=== PATIENT | female | born 1960 | race Caucasian/White ===

== ENCOUNTER 2021-11-27 08:15 | Inpatient (IN) | payer BC, SELFPAY ==
[2021-11-27] VITALS (16 sets, daily range): BP systolic 139–159; BP diastolic 56–80; PULSE 83–97; RESP 11–20; TEMP 36.4–37.1; O2SAT 97–100; BMI 43.8
--- NOTE | ~2021-11-27 | NM_ITS ---
EXAMINATION: NM GI bleeding DATE: 12/02/2021 12:19 INDICATION: Gastrointestinal hemorrhage. TECHNIQUE: 23.6 mCi Tc 99m in vitro labeled red cells was administered intravenously. Scintigraphic images of the abdomen were obtained for one hour. COMPARISON: None. FINDINGS: No pattern of abnormal activity is seen in the abdomen or pelvis to suggest gastrointestina l hemorrhage. IMPRESSION: 1. No evidence of active gastrointestinal hemorrhage. Reviewed, dictated and finalized at location B.
--- NOTE | ~2021-11-27 | CT_ITS ---
EXAMINATION: CT abdomen pelvis w con DATE: 11/27/2021 09:41 INDICATION: Generalized abdominal pain. TECHNIQUE: Computed tomography (CT) of the abdomen and pelvis was performed with 100 mL Omnipaque 350 intravenous contrast. Automated exposure control and iterative reconstruction technique were employe d. The dose-length product was 1584.67 mGy-cm. COMPARISON: CT abdomen and pelvis 06/02/2014 FINDINGS: The visualized portions of the lung bases demonstrate mild atelectasis. No pleural effusion . The heart size is normal. No pericardial effusion. There are coronary artery calcifications. There are surgical changes of the stomach. There is a 13 mm cyst in the liver. The gallbladder is absent. T he spleen and pancreas are normal. There are numerous cysts in the kidneys measuring up to 7.7 cm on the left. There are no dilated loops of bowel. The appendix is normal. There are no pathologically en larged lymph nodes. There is no free intraperitoneal fluid. There is a lipoma in left gluteus medius muscle. There are bilateral total hip arthroplasties. There is lumbar dextrocurvature and severe spon dylosis. IMPRESSION: 1. Polycystic kidney disease. Reviewed, dictated and finalized at location A.
--- NOTE | ~2021-11-27 | US_ITS ---
EXAMINATION: US venous doppler [facility] DATE: 12/03/2021 16:42 INDICATION: Left arm swelling TECHNIQUE: Grayscale ultrasound images without and with compression and Doppler ultrasound images of the left upper extremity veins were obtained. COMPARISON: None. FINDINGS: The level of the elbow there are peripheral and central echogenicities and lack of flow within a nonc ompressible cephalic vein. Downstream portions of the cephalic vein were patent The visualized portio ns of the left internal jugular vein, subclavian vein, axillary vein, brachial veins, basilic vein, r adial vein, and ulnar vein are patent. IMPRESSION: 1. 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 Reviewed, dictated and finalized at location K. IMPRESSION: 1. Sonographic findings consistent with chronic posttraumatic change in the ce phalic vein at the level of the elbow.
--- NOTE | ~2021-11-27 | NM_ITS ---
EXAMINATION: NM GI bleeding DATE: 12/03/2021 14:31 INDICATION: Hematochezia TECHNIQUE: Anterior and left and right lateral scanned scintigrams of the abdomen were obtained prior to radiopharmaceutical injection to assess for residual activity from the study performed one day pr ior. Sufficient activity was present confirming gastrointestinal bleed and was elected to defer with additional radiopharmaceutical injection. FINDINGS: There is activity scattered throughout the colon beginning proximally at the cecum. There i s a small amount of activity in the right lower quadrant situated between the cecum and what is likel y the sigmoid colon likely within the distal small bowel and likely representing the origin of the bl eed. IMPRESSION: 1. Active gastrointestinal bleed with activity throughout the colon beginning at the cecum and also likely within some distal small bowel in the right lower quadrant which likely represents the site of origin. Reviewed, dictated and finalized at location A.
--- NOTE | 2021-11-27 08:38 | ED.GENADULT ---
HPI - General Adult General Chief complaint: Abdominal Pain Stated complaint: abdominal pain Time Seen by Provider: 11/27/21 08:38 Source: patient and RN notes reviewed Mode of arrival: ambulatory Limitations: no limitations History of Present Illness HPI narrative: Patient is 61 years old white female came to the emergency room because of loose stool x1, bloody, started 3 days ago and another similar symptom today. Patient denies any fever, chills, nausea, vomiting. The above symptom associated with mild diffuse abdominal pain. History of gastric bypass 7 years ago at [facility] with complication including perforation, scar tissue formation, stretching the connection between the esophagus and small bowel, feeding tube for 1 month then removed. Also history of ankylosing spondylitis on Celebrex for years. Related Data Home Medications Medication Instructions Recorded Confirmed cefadroxil 11/27/21 celecoxib mg 11/27/21 clotrimazole-betamethasone applic TOPICAL 11/27/21 duloxetine mg PO 11/27/21 folic acid 11/27/21 gabapentin 11/27/21 golimumab [Simponi ARIA] IV 11/27/21 leflunomide mg 11/27/21 oxycodone-acetaminophen 11/27/21 tramadol mg 11/27/21 trazodone 11/27/21 Allergies Allergy/AdvReac Type Severity Reaction Status Date / Time No Known Allergies Allergy Verified 11/27/21 08:38 Review of Systems Review of Systems: CONSTITUTIONAL: Denies fever, chills, or sweats. EYES: Denies visual changes, redness, or discharge. ENT: Denies rhinorrhea, congestion, sore throat, or otalgia. CARDIOVASCULAR: Denies chest pain, palpitations, or edema. RESPIRATORY: Denies cough or dyspnea. GASTROINTESTINAL: Denies abdominal pain, nausea, vomiting, or diarrhea. GENITOURINARY: Denies dysuria or hematuria. SKIN: Denies rash or itching. MUSCULOSKELETAL: Denies back pain, joint pain, or myalgia. NEUROLOGIC: Denies headache, numbness, or weakness. PSYCHIATRIC: Denies anxiety or depression. PMFSH Social History Social History Smoking status: Never smoker Exam Narrative: General appearance: Well-developed, well-nourished Skin: Normal color Head: Normocephalic, nontraumatic Eyes: Clear conjunctiva ENT: Oropharynx normal, ears normal, nose normal Neck: Supple, nontender Chest and respiratory: Airway patent, no respiratory distress, no accessory muscle use Heart: Regular rate/rhythm Abdomen: Soft, mild diffuse abdominal tenderness, quiet bowel sounds, rectal exam, maroon color of the stool, guaiac positive Vascular: Normal peripheral pulses, normal capillary refill. Musculoskeletal: Normal range of motion, nontender back Neurologic: Alert and oriented ?3, CHUCK [place]AG[place] COOK is normal as tested, no gross motor deficit Course Course Emergency Course: Stable Consultations Consultation #1: Dr. Caal, accepted patient admission Date: 11/27/21 Time: 10:44 Vital Signs Vital signs: Vital Signs Temperature 36.9 C 11/27/21 08:24 Pulse Rate 97 11/27/21 08:24 Respiratory Rate 16 11/27/21 08:24 Blood Pressure 158/70 H 11/27/21 08:24 Pulse Oximetry 100 11/27/21 08:24 Temperature 36.9 C 11/27/21 08:24 Pulse Rate 97 11/27/21 08:24 Respiratory Rate 16 11/27/21 08:24 Blood Pressure 158/70 H 11/27/21 08:24 Pulse Oximetry 100 11/27/21 08:24 Medical Decision Making MDM Narrative Medical decision making narrative: GI bleed, gastritis, peptic ulcer disease are my concern. High likely secondary to chronic intake of Celebrex Differential Diagnosis Differential Diagnosis: Gastritis, peptic ulcer disease, GI bleed, anemia Vital Signs Vital Signs: Vital Sign
[2021-11-27] MEDS: SODIUM CHLORIDE 0.9% IV 1,000 ML 999 ML IV CONT (08:52)
[2021-11-27 09:10] LABS: Alanine Aminotransferase 13 U/L (4-35); Albumin Level 3.1 g/dL (3.5-5.1); Alkaline Phosphatase 59 U/L (38-126); Anion Gap 6 mmol/L (8-16); Aspartate Amino Transferase 21 U/L (14-36); Bilirubin,Total 0.2 mg/dL (0.2-1.3); Blood Urea Nitrogen 39 mg/dL (7-17); Calcium 8.2 mg/dL (8.4-10.2); Carbon Dioxide 23 mmol/L (22-30); Chloride 111 mmol/L (98-107); Estimated CRCL calculation 85 ml/min; Estimated Glomerular Filt Rate > 60; Glucose 114 mg/dL (65-110); Lipase 34 U/L (23-300); Potassium 3.9 mmol/L (3.4-5.0); Sodium 140 mmol/L (137-145)
[2021-11-27 09:11] LABS: Basophils Percent Auto 0.4 % (0.2-1.2); Eosinophils Absolute Auto 0.1 K/mm3 (0-0.3); Eosinophils Percent Auto 1.8 % (0-4.4); Immature Granulocyte Absolute 0.01 K/mm3 (0.00-0.031); Immature Granulocyte Percent A 0.2 % (0-0.5); Lymphocytes Absolute Auto 0.91 K/mm3 (0.9-3.2); Lymphocytes Percent Auto 17.7 % (18.3-44.2); Mean Corpuscular HGB Conc 28.8 g/dl (32-36); Mean Corpuscular Hemoglobin 25.2 pg (26-34); Mean Corpuscular Volume 87.6 fl (80-100); Mean Platelet Volume 10.1 fl (7.4-10.4); Monocytes Absolute Auto 0.5 K/mm3 (0.1-0.6); Monocytes Percent Auto 9.5 % (2.6-8.5); Neutrophils Absolute Auto 3.6 K/mm3 (1.3-6.7); Neutrophils Percent Auto 70.4 % (45.5-73.1); Platelet Count Result 253 k/mm3 (150-375); Red Blood Count 2.34 M/mm3 (4.2-5.4); Red Cell Distribution Width 19.4 % (11.5-14.5); White Blood Count 5.1 K/mm3 (4.5-10.0)
--- NOTE | 2021-11-27 09:19 | PC.NURSE ---
pt unable to urinate at this time. declining straight cath.
[2021-11-27 09:33] LABS: Hematocrit 20.5 % (37.0-47.0); Hemoglobin 5.9 g/dL (12.0-15.0)
[2021-11-27 09:39] LABS: Anisocytosis 1+ (NORMAL); Platelet Estimate Adequate (Adequate)
[2021-11-27 10:29] LABS: Appearance Urine Clear (Clear); Bilirubin Urine Negative (Negative); Blood Urine 2+ (Negative); Glucose Urine UA Negative (Negative); Ketones Urine Trace mg/dL (Negative); Leukocyte Esterase Ur Negative LEU/UL (Negative); Nitrate Urine Negative (Negative); Protein Urine Negative (Negative); Specific Grav Ur 1.015 (1.001-1.035); Urobilinogen Urine 0.2 mg/dL (<2.0); pH Urine 6.5 (5.0-9.0)
[2021-11-27 10:30] LABS: Add Urine Microscopic? YES; Color Urine Light Yellow (Yellow)
[2021-11-27 10:34] LABS: Bacteria Urine Trace /hpf; RBC Urine 0-2 /hpf (0-2); WBC Urine 0-3 /hpf
[2021-11-27 11:00] LABS: Hematocrit 19.4 % (37.0-47.0); Hemoglobin 5.5 g/dL (12.0-15.0)
[2021-11-27] MEDS: PANTOPRAZOLE SODIUM IV 40 MG VIAL IV PUSH ×2 (11:06→21:48)
[2021-11-27] MEDS: SODIUM CHLORIDE 0.9% IV 250 ML 30 ML IV CONT (11:42)
[2021-11-27] MEDS: TUBING, BLOOD PLUM PUMP TUBING 1 EACH XX (12:14)
--- NOTE | 2021-11-27 13:17 | ADMGEN ---
This patient, Flory Suggs, was admitted to 2 Medical Room 246-. Patient/family oriented to hospital policies and general routines including ID bracelet, bed and alarms, visiting hours, pain management, procedures, bathroom and other care routines, personal items, smoking policy, room service/diet, and visiting hours. Information on how to activate the Rapid Response Team has been discussed. Patient/Family are encouraged to report perceived risks to care and to ask questions if they do not understand what they are told or what they should do.
--- NOTE | 2021-11-27 15:25 | PM.IMHP ---
H&P: HPI History of Present Illness Date/Time: 11/27/21 15:25 this is a 61-year-old female that presented to our emergency department with complaints fatigue and bloody stools. Patient has a past medical history of gastric bypass. According to patient for approximately 3 days she felt weak and fatigued. She notes that this morning she had a loose bowel movement and noticed blood in her stool. Patient describes the blood as dark purplish in color. Patient also notes of nausea vomiting which is not new to her. According to patient her gastric bypass occasionally cause her to have nausea vomiting if she does not chew her food correctly. Patient denies any hematemesis, notes that her nausea vomiting has resolved, and she has not noticed any hematochezia since her admission, she also denies any shortness of breath, chest pain palpitation, or dizziness. She continues to have abdominal pain to her lower abdominal area and left upper abdominal area. Chief Complaint: Bloody stool, fatigue and weakness Review of Systems Review of Systems: All systems reviewed & are unremarkable except as noted in HPI and below PMFSH Family History Family History (Updated 11/27/21 @ 13:26 by Urmila Kuo RN) Father Acute myocardial infarction Mother Hypertension Mother Cerebrovascular accident Social History Social History Smoking packs per day: 0.5 Smoking cigarettes per day: 10.0 Years smoked: 20 Smoking pack-years: 10.00 Smoking status: Former smoker Tobacco type: cigarettes Alcohol intake: never Substance use: never Substance use type: does not use Spiritual care concerns: No Meds Home Medications and Allergies Home Medications Medication Instructions Recorded Confirmed Type cefadroxil 11/27/21 History celecoxib 200 mg PO BID 11/27/21 11/27/21 History clotrimazole-betamethasone applic TOPICAL 11/27/21 History duloxetine 60 mg PO DAILY 11/27/21 11/27/21 History folic acid 1 mg PO DAILY 11/27/21 11/27/21 History gabapentin 900 mg PO HS 11/27/21 11/27/21 History golimumab [Simponi ARIA] IV 11/27/21 History leflunomide 10 mg PO DAILY 11/27/21 11/27/21 History methotrexate sodium 12.5 mg PO WEEKLY 11/27/21 11/27/21 History oxycodone-acetaminophen 11/27/21 History tramadol 50 mg PO TID 11/27/21 11/27/21 History trazodone 50 mg PO HS PRN 11/27/21 11/27/21 History Allergies Allergy/AdvReac Type Severity Reaction Status Date / Time No Known Allergies Allergy Verified 11/27/21 08:38 Vital Signs Vital Signs - 24 hr 11/27/21 08:24 11/27/21 10:56 11/27/21 11:45 Temperature 98.5 F 97.7 F Pulse Rate 97 93 95 Respiratory Rate 16 20 18 Blood Pressure 158/70 H 158/80 H 155/79 H Pulse Oximetry 100 97 100 11/27/21 12:00 11/27/21 12:35 11/27/21 13:15 Temperature 98.1 F 98.3 F Pulse Rate 93 91 95 Respiratory Rate 12 11 L 16 Blood Pressure 159/76 H 156/75 H 152/74 H Pulse Oximetry 97 99 100 11/27/21 13:45 11/27/21 14:15 11/27/21 15:05 Temperature 98.4 F 98.6 F 98.4 F Pulse Rate 94 88 91 Respiratory Rate 17 18 16 Blood Pressure 140/64 139/62 145/63 H Pulse Oximetry 99 99 100 11/27/21 15:20 Temperature 98.6 F Pulse Rate 93 Respiratory Rate 18 Blood Pressure 140/58 L Pulse Oximetry 98 Exam Narrative: General: Pleasant, no obvious distress noted HEENT: PERRLA, Mucous Membranes Moist and [place], Nares Patent, Sclera Clear Neck: JVD, Supple Pulmonary: Clear to Auscultation, Normal Air Movement Cardiovascular: No Murmurs, Gallops, or Rubs, Regular Rhythm, Regular Rate Abdominal: Abdomen Soft, Non-Distended, Normal Bowel Sounds tenderness to the lower abdominal area and left upper quad Extremities: Normal Pulses Integumentary: No Abnormalities Neurological: Normal Gait, Normal Speech Psychological: Mental Status NL, Mood NL H&P: Results Labs Labs: Short CBC 11/27/21 11/27/21 Range/Units 08:53 10:43 W
[2021-11-27] MEDS: SODIUM CHLORIDE 0.9% IV 1,000 ML 125 ML IV CONT (17:33)
[2021-11-27] MEDS: HYDROcodone/acetaminophen (*CRX) 5-325 MG TABLET 1 TAB PO (17:54)
[2021-11-27 19:16] LABS: Hematocrit 23.7 % (37.0-47.0)
[2021-11-27 19:32] LABS: Transferrin 253 mg/dL (206-381)
[2021-11-27 19:41] LABS: Iron 30 ug/dL (37-170)
[2021-11-27 19:51] LABS: Percent Iron Saturation 9 % (20-50)
[2021-11-27 20:13] LABS: Thyroid Stimulating Hormone Reflex 0.364 uIU/mL (0.465-4.68)
[2021-11-27 20:43] LABS: Folic Acid > 20.0 ng/mL (2.76->20)
[2021-11-27 21:17] LABS: Hematocrit 22.1 % (37.0-47.0)
[2021-11-27 21:35] LABS: Hemoglobin 6.6 g/dL (12.0-15.0)
[2021-11-28] VITALS (12 sets, daily range): BP systolic 138–171; BP diastolic 67–93; PULSE 81–91; RESP 16–20; TEMP 36.4–36.7; O2SAT 97–100
[2021-11-28 03:51] LABS: Free T4 Free Thyroxine Reflex 1.31 ng/dL (0.78-2.19)
[2021-11-28] MEDS: MORPHINE SULFATE (*CRX) 2 MG/ML INJ IV PUSH ×2 (05:45→13:27)
[2021-11-28 06:15] LABS: Basophils Percent Auto 0.7 % (0.2-1.2); Eosinophils Percent Auto 0.9 % (0-4.4); Hematocrit 28.6 % (37.0-47.0); Hemoglobin 8.8 g/dL (12.0-15.0); Immature Granulocyte Absolute 0.01 K/mm3 (0.00-0.031); Immature Granulocyte Percent A 0.2 % (0-0.5); Lymphocytes Absolute Auto 0.86 K/mm3 (0.9-3.2); Lymphocytes Percent Auto 19.7 % (18.3-44.2); Mean Corpuscular HGB Conc 30.8 g/dl (32-36); Mean Corpuscular Hemoglobin 27.4 pg (26-34); Mean Corpuscular Volume 89.1 fl (80-100); Mean Platelet Volume 9.6 fl (7.4-10.4); Monocytes Absolute Auto 0.6 K/mm3 (0.1-0.6); Monocytes Percent Auto 13.7 % (2.6-8.5); Neutrophils Absolute Auto 2.8 K/mm3 (1.3-6.7); Neutrophils Percent Auto 64.8 % (45.5-73.1); Platelet Count Result 208 k/mm3 (150-375); Red Blood Count 3.21 M/mm3 (4.2-5.4); Red Cell Distribution Width 17.7 % (11.5-14.5); White Blood Count 4.4 K/mm3 (4.5-10.0)
[2021-11-28 06:24] LABS: Alanine Aminotransferase 12 U/L (4-35); Albumin Level 3.1 g/dL (3.5-5.1); Alkaline Phosphatase 60 U/L (38-126); Anion Gap 4 mmol/L (8-16); Aspartate Amino Transferase 22 U/L (14-36); Blood Urea Nitrogen 29 mg/dL (7-17); Calcium 8.2 mg/dL (8.4-10.2); Carbon Dioxide 22 mmol/L (22-30); Chloride 115 mmol/L (98-107); Estimated CRCL calculation 97 ml/min; Estimated Glomerular Filt Rate > 60; Glucose 105 mg/dL (65-110); Magnesium 2.1 mg/dL (1.6-2.3); Potassium 3.5 mmol/L (3.4-5.0); Sodium 141 mmol/L (137-145)
[2021-11-28] MEDS: SODIUM CHLORIDE 0.9% IV 1,000 ML 125 ML IV CONT ×2 (08:31→16:02)
[2021-11-28] MEDS: PANTOPRAZOLE SODIUM IV 40 MG VIAL IV PUSH ×2 (08:32→20:56)
--- NOTE | 2021-11-28 10:52 | PM.IMPN ---
Progress Note: A&P Assessment and Plan (1) Acute GI bleeding: Code(s): K92.2 - Gastrointestinal hemorrhage, unspecified Status: Acute Assessment and Plan: Presented with bloody stools for 4 days with associated epigastric pain Patient does take Celebrex daily. History and symptoms concerning for gastric ulcer Appreciate gastroenterology consultation Patient is NPO at this time while awaiting GI recommendations Continue Protonix b.i.d. Celebrex discontinued (2) Anemia: Qualifiers: Anemia type: unspecified type Qualified Code(s): D64.9 - Anemia, unspecified Code(s): D64.9 - Anemia, unspecified Status: Acute Assessment and Plan: Found to be markedly anemic on presentation with hemoglobin down to 5.5 Secondary to GI bleed as above. Her baseline is unknown. Will attempt to obtain records from her PCP to determine baseline She has been transfused total of 4 units PRBC Hemoglobin has stabilized following transfusion to 8.8 this morning Monitor H&H q.6 hours (3) BAMBI (obstructive sleep apnea): Code(s): G47.33 - Obstructive sleep apnea (adult) (pediatric) Status: Acute Assessment and Plan: Continue with BiPAP (4) Ankylosing spondylitis: Code(s): M45.9 - Ankylosing spondylitis of unspecified sites in spine Status: Acute Assessment and Plan: Established with camp housekeeper, Dr. Graham at [facility] Receives golimumab infusions every 2 weeks and takes methotrexate weekly Leflunomide 10 mg p.o. daily on hold while NPO. Resume when clinically appropriate Supportive care. Analgesics available as needed (5) Abnormal TSH: Code(s): R79.89 - Other specified abnormal findings of blood chemistry Status: Acute Assessment and Plan: TSH is slightly decreased but T4 and T3 are normal Will need repeat TSH with reflex in 4-6 weeks (6) Bariatric surgery status: Code(s): Z98.84 - Bariatric surgery status Status: Acute Assessment and Plan: Patient is s/p Leo-en-Y gastric bypass in 2014 Subjective Date/time seen: 11/28/21 10:52 Interval history: Date of service: 11/28/2021 Flory Suggs is a 61-year-old female with a history ankylosing spondylitis on immunosuppressive therapy, Leo-en-Y bypass in 2014 complicated by perforation, BAMBI on BiPAP who is seen in follow-up for GI bleeding. Four days ago she developed bloody stools that she describes as maroon in color with associated weakness. She then had difficulty tolerating any food or liquids. She described a significant sharp/cramping pain any time she would try to eat or drink anything. This pain is mostly concentrated epigastric region. She does endorse taking Celebrex daily. She denies aspirin, blood thinners, or any other NSAID use. She estimates that she is the head 3 episodes of bloody stool in the past 24 hours. She also endorses a headache. She denies dizziness but does endorse feeling somewhat lightheaded. Also endorses dyspnea with exertion. Last night about 3:00 a.m. she had an onset of sharp mid back pain that resolved with tramadol. She denies chest pain or palpitations. Denies nausea or vomiting. No hematemesis. No hematuria or dysuria. Review of Systems Review of Systems: All systems reviewed & are unremarkable except as noted in HPI and below Exam Narrative: General: Well-nourished, well-appearing 61 year-old female, sitting up in bed, comfortable, NARD Neuro: awake, alert and oriented x4, speech clear, no focal neuro deficits noted HEENMT: normocephalic, atraumatic, EOMI, sclerae anicteric Respiratory: clear to auscultation bilaterally, nonlabored breathing Cardio: regular rate, regular rhythm with S1-S2 Abdomen: nondistended, normoactive bowel sounds, soft, nontender to palpation Extremities: no edema, erythema, or tenderness to palpation, DP pulses 2+ bilaterally Skin: no rashes or lesions, warm and dry P
[2021-11-28 11:54] LABS: Hematocrit 28.4 % (37.0-47.0); Hemoglobin 8.7 g/dL (12.0-15.0)
--- NOTE | 2021-11-28 12:26 | WPDGICN ---
Assessment and Plan Assessment and plan (1) Acute blood loss anemia: Code(s): D62 - Acute posthemorrhagic anemia Status: Acute Assessment and Plan: will proceed with egd and colonoscopy to check source of anemia she already received blood transfusion, keep hb>7 could be peptic ulcer disease given previous gastric surgery, also colitis or diverticular bleeding however CT scan was negative (2) Rectal bleeding: Code(s): K62.5 - Hemorrhage of anus and rectum Status: Acute Assessment and Plan: scopes tomorrow (3) Acute LUQ pain: Code(s): R10.12 - Left upper quadrant pain Status: Acute (4) Ankylosing spondylitis: Code(s): M45.9 - Ankylosing spondylitis of unspecified sites in spine Status: Acute Assessment and Plan: on meds at home, he is immunocompromised (5) BAMBI (obstructive sleep apnea): Code(s): G47.33 - Obstructive sleep apnea (adult) (pediatric) Status: Acute (6) History of Leo-en-Y gastric bypass: Code(s): Z98.84 - Bariatric surgery status Status: Inactive GI Consult Note Consult date/time: 11/28/21 12:26 Reason for consult: rectal bleeding, acute anemia HPI: Flory Suggs is a 61 year old female with history of on MTX, leflunomide, history of gastric bypass 6-7 years ago as bariatric surgery. Her last EGD and colonoscopy 6-7 years ago. She also has chronic back pain on tramadol and celebrex, denies blood thinners. On had one episode of rectal bleeding that subsided but came back day of admission, also had moderate pain in LUQ site worse after eating hence she has not been eating since admission. She has maroon stool, denies melena. Blood work revealed acute anemia with hb 5.9 that required blood transfusion, bun [address] scan a/p reviewed, showed surgical changes of stomach, cholecystectomy and polycystic kidney disease. Review of Systems Constitutional: Constitutional: Reports fatigue Eyes: Eyes: Denies blurry vision ENT: Reports Normal hearing present Cardiovascular: Cardiovascular: Denies chest pain Respiratory: Respiratory: Denies cough Gastrointestinal: Gastrointestinal: Reports abdominal pain and Reports hematochezia Genitourinary: Genitourinary: Denies hematuria Musculoskeletal: Musculoskeletal: Reports back pain Integumentary/Breasts: Skin/Breast: Denies dry skin Neurologic: Denies headache(s) Psychiatric: Psychiatric: Reports behavioral changes [facility] Past Medical History Medical History (Updated 11/28/21 @ 12:32 by Faraz Guthrie MD) Acute blood loss anemia Acute LUQ pain Ankylosing spondylitis BAMBI (obstructive sleep apnea) Rectal bleeding Surgical History Surgical History (Updated 11/28/21 @ 12:32 by Faraz Guthrie MD) History of Leo-en-Y gastric bypass Family History Family History (Updated 11/27/21 @ 13:26 by Urmila Kuo RN) Father Acute myocardial infarction Mother Hypertension Mother Cerebrovascular accident Social History Social History Smoking packs per day: 0.5 Smoking cigarettes per day: 10.0 Years smoked: 20 Smoking pack-years: 10.00 Smoking status: Former smoker Tobacco type: cigarettes Alcohol intake: never Substance use: never Substance use type: does not use Spiritual care concerns: No Meds Home Medications and Allergies Home Medications Medication Instructions Recorded Confirmed Type celecoxib 200 mg PO BID 11/27/21 11/27/21 History duloxetine 60 mg PO DAILY 11/27/21 11/27/21 History folic acid 1 mg PO DAILY 11/27/21 11/27/21 History gabapentin 900 mg PO HS 11/27/21 11/27/21 History leflunomide 10 mg PO DAILY 11/27/21 11/27/21 History methotrexate sodium 12.5 mg PO WEEKLY 11/27/21 11/27/21 History tramadol 50 mg PO TID 11/27/21 11/27/21 History trazodone 50 mg PO HS PRN 11/27/21 11/27/21 History Allergies
--- NOTE | 2021-11-28 12:29 | PCCCNOTE ---
On 11/28/21, the student, [Carley Velasco], provided care and [facility] I have reviewed the student's documentation and agree with the findings.
[2021-11-28 13:45] LABS: IFOB Positive Control Positive; Immunochemical Fecal Occult Bl Positive (N)
[2021-11-28] MEDS: BISACODYL 5 MG TABLET EC 20 MG PO (16:02)
[2021-11-28] MEDS: PEG (High)/E-LYTE SOLN 4,000 ML BTL 4000 ML PO (16:03)
[2021-11-28 18:47] LABS: Hematocrit 29.6 % (37.0-47.0); Hemoglobin 9.5 g/dL (12.0-15.0)
[2021-11-28] MEDS: HYDROcodone/acetaminophen (*CRX) 5-325 MG TABLET 1 TAB PO (21:00)
[2021-11-29] VITALS (11 sets, daily range): BP systolic 109–162; BP diastolic 60–97; PULSE 81–100; RESP 14–24; TEMP 35.7–36.8; O2SAT 96–100
[2021-11-29] MEDS: ONDANSETRON INJ 4 MG/2 ML VIAL IV PUSH (00:18)
[2021-11-29] MEDS: SODIUM CHLORIDE 0.9% IV 1,000 ML 125 ML IV CONT (00:20)
[2021-11-29 00:48] LABS: Hematocrit 28.7 % (37.0-47.0); Hemoglobin 8.7 g/dL (12.0-15.0)
[2021-11-29] MEDS: MAGNESIUM CITRATE 300 ML BTL PO (02:51)
[2021-11-29] MEDS: HYDROcodone/acetaminophen (*CRX) 5-325 MG TABLET 1 TAB PO (02:51)
[2021-11-29 06:10] LABS: Anion Gap 5 mmol/L (8-16); Blood Urea Nitrogen 18 mg/dL (7-17); Carbon Dioxide 21 mmol/L (22-30); Chloride 115 mmol/L (98-107); Estimated CRCL calculation 97 ml/min; Estimated Glomerular Filt Rate > 60; Glucose 109 mg/dL (65-110); Potassium 3.6 mmol/L (3.4-5.0); Sodium 141 mmol/L (137-145)
[2021-11-29 06:26] LABS: Hematocrit 28.4 % (37.0-47.0); Hemoglobin 8.6 g/dL (12.0-15.0); Mean Corpuscular HGB Conc 30.3 g/dl (32-36); Mean Corpuscular Hemoglobin 27.2 pg (26-34); Mean Corpuscular Volume 89.9 fl (80-100); Mean Platelet Volume 10.1 fl (7.4-10.4); Platelet Count Result 252 k/mm3 (150-375); Red Blood Count 3.16 M/mm3 (4.2-5.4); Red Cell Distribution Width 18.1 % (11.5-14.5); White Blood Count 5.4 K/mm3 (4.5-10.0)
[2021-11-29] MEDS: PANTOPRAZOLE SODIUM IV 40 MG VIAL IV PUSH (08:01)
--- NOTE | 2021-11-29 09:34 | PC.NURSE ---
Pt to GI lab pe wheelchair 11/29/21 [id number]
[2021-11-29] MEDS: LACTATED RINGERS 1,000 ML 150 ML IV CONT (09:45)
--- NOTE | 2021-11-29 10:01 | WPDANESEPPF ---
Anes - Initial Pre Proc Eval Procedure: Operation Date: 11/29/21 12:15 Proposed Procedures p Esophagogastroduodenoscopy & Colonoscopy - Faraz Guthrie MD Date/Time: 11/29/21 10:01 Surgeon: Maddy Mccartney PA-C Pre Op Diagnosis: GI bleed/anemia Patient Data Age: 61 Gender: F Height: 1.75 m Weight: 134.7 kg Last Vital Signs Temp 36.3 C L 11/29/21 09:35 Pulse 87 11/29/21 09:35 Resp 18 11/29/21 09:35 BP 155/86 H 11/29/21 09:35 Pulse Ox 100 11/29/21 09:35 Allergies Allergy/AdvReac Type Severity Reaction Status Date / Time No Known Allergies Allergy Verified 11/29/21 09:45 Home Medications Medication Instructions Recorded Confirmed Type celecoxib 200 mg PO BID 11/27/21 11/27/21 History duloxetine 60 mg PO DAILY 11/27/21 11/27/21 History folic acid 1 mg PO DAILY 11/27/21 11/27/21 History gabapentin 900 mg PO HS 11/27/21 11/27/21 History leflunomide 10 mg PO DAILY 11/27/21 11/27/21 History methotrexate sodium 12.5 mg PO WEEKLY 11/27/21 11/27/21 History tramadol 50 mg PO TID 11/27/21 11/27/21 History trazodone 50 mg PO HS PRN 11/27/21 11/27/21 History Laboratory Tests 11/28/21 11/28/21 11/28/21 11:37 13:13 18:38 WBC RBC Hgb 8.7 g/dL L g/dL 9.5 g/dL L g/dL (12.0-15.0) (12.0-15.0) Hct 28.4 % L % 29.6 % L % (37.0-47.0) (37.0-47.0) MCV MCH MCHC RDW Plt Count MPV Sodium Potassium Chloride Carbon Dioxide Anion Gap BUN Creatinine Estim Creat Clear Calc Estimated GFR Glucose Calcium Stl Occult Blood (IFOB) Positive H (N) 11/29/21 11/29/21 11/29/21 00:21 05:52 05:52 WBC 5.4 K/mm3 K/mm3 (4.5-10.0) RBC 3.16 M/mm3 L M/mm3 (4.2-5.4) Hgb 8.7 g/dL L g/dL 8.6 g/dL L g/dL (12.0-15.0) (12.0-15.0) Hct 28.7 % L % 28.4 % L % (37.0-47.0) (37.0-47.0) MCV 89.9 fl fl (80-100) MCH 27.2 pg pg (26-34) MCHC 30.3 g/dl L g/dl (32-36) RDW 18.1 % H % (11.5-14.5) Plt Count 252 k/mm3 k/mm3 (150-375) MPV 10.1 fl fl (7.4-10.4) Sodium 141 mmol/L mmol/L (137-145) Potassium 3.6 mmol/L mmol/L (3.4-5.0) Chloride 115 mmol/L H mmol/L (98-107) Carbon Dioxide 21 mmol/L L mmol/L (22-30) Anion Gap 5 mmol/L L mmol/L (8-16) BUN 18 mg/dL H D mg/dL (7-17) Creatinine 0.80 mg/dL mg/dL (0.7-1.0) Estim Creat Clear Calc 97 ml/min ml/min Estimated GFR > 60 (59 - ) Glucose 109 mg/dL mg/dL (65-110) Calcium 8.0 mg/dL L mg/dL (8.4-10.2) Stl Occult Blood (IFOB) Patient hx anesthesia problems: none Family hx anesthesia problems: none Results Review: All pre-operative results and documents have been reviewed as part of the pre-operative evaluation. [facility] Past Medical History Medical History (Updated 11/28/21 @ 12:32 by Faraz Guthrie MD) Acute blood loss anemia Acute LUQ pain Ankylosing spondylitis BAMBI (obstructive sleep apnea) Rectal bleeding Surgical History Surgical History (Updated 11/28/21 @ 12:32 by Faraz Guthrie MD) History of Leo-en-Y gastric bypass Family History Family History (Updated 11/27/21 @ 13:26 by Urmila Kuo RN) Father Acute myocardial infarction Mother Hypertension Mother Cerebrovascular accident Social History Social History Smoking packs per day: 0.5 Smoking cigarettes per day: 10.0 Years smoked: 20 Smoking pack-years: 10.00 Smoking status: Former smoker Tobacco type: cigarettes Alcohol intake: never Substance use: never Substance use type: does
--- NOTE | 2021-11-29 10:01 | PM.IMPN ---
Progress Note: A&P Assessment and Plan (1) Acute GI bleeding: Code(s): K92.2 - Gastrointestinal hemorrhage, unspecified Status: Acute Assessment and Plan: Presented with bloody stools for 4 days with associated epigastric pain Patient does take Celebrex daily. History and symptoms concerning for peptic ulcer Appreciate gastroenterology consultation EGD and colonoscopy this afternoon Continue Protonix b.i.d. Celebrex discontinued (2) Anemia: Qualifiers: Anemia type: unspecified type Qualified Code(s): D64.9 - Anemia, unspecified Code(s): D64.9 - Anemia, unspecified Status: Acute Assessment and Plan: Found to be markedly anemic on presentation with hemoglobin down to 5.5 Secondary to GI bleed as above. Her baseline is unknown. Will attempt to obtain records from her PCP to determine baseline She has been transfused total of 4 units PRBC Hemoglobin has stabilized following transfusion. Hgb 8.6 this morning Monitor H&H q.6 hours (3) BAMBI (obstructive sleep apnea): Code(s): G47.33 - Obstructive sleep apnea (adult) (pediatric) Status: Acute Assessment and Plan: Continue with BiPAP (4) Ankylosing spondylitis: Code(s): M45.9 - Ankylosing spondylitis of unspecified sites in spine Status: Acute Assessment and Plan: Established with public housing interviewer, Dr. Graham at [facility] Receives golimumab infusions every 2 weeks and takes methotrexate weekly Leflunomide 10 mg p.o. daily on hold while NPO. Resume when clinically appropriate Supportive care. Analgesics available as needed (5) Abnormal TSH: Code(s): R79.89 - Other specified abnormal findings of blood chemistry Status: Acute Assessment and Plan: TSH is slightly decreased but T4 and T3 are normal Will need repeat TSH with reflex in 4-6 weeks (6) Bariatric surgery status: Code(s): Z98.84 - Bariatric surgery status Status: Acute Assessment and Plan: Patient is s/p Leo-en-Y gastric bypass in 2014 (7) Epistaxis: Code(s): R04.0 - Epistaxis Status: Acute Assessment and Plan: Nosebleed last night Self-limited, resolved Continue to monitor H&H Subjective Date/time seen: 11/29/21 10:01 Interval history: Date of service: 11/29/2021 Flory Suggs is a 61-year-old female with a history ankylosing spondylitis on immunosuppressive therapy, Leo-en-Y bypass in 2015 complicated by perforation, BAMBI on BiPAP who is seen in follow-up for GI bleeding. She is feeling poorly today, ?like I got hit by a truck?. She feels weaker than yesterday. She states she did not sleep well last night. She had a nose bleed. She cannot recall how long this lasted but states she had to use a couple towels. She states she has nose bleeds ?every so often.? She had a hard time taking the prep for colonoscopy last night as drinking liquids major feel nauseous. She has still been having maroon stools. She endorses 6-7/10 epigastric pain. States last night her epigastric pain got to 10/10. She has chronic back pain that is unchanged. She denies shortness breath, chest pain, palpitations, dizziness, lightheadedness. Review of Systems Review of Systems: All systems reviewed & are unremarkable except as noted in HPI and below Exam Narrative: General: Well-nourished, well-appearing 61 year-old female, sitting up in bed, comfortable, NARD Neuro: awake, alert and oriented x4, speech clear, no focal neuro deficits noted HEENMT: normocephalic, atraumatic, EOMI, sclerae anicteric Respiratory: clear to auscultation bilaterally, nonlabored breathing Cardio: regular rate, regular rhythm with S1-S2 Abdomen: nondistended, normoactive bowel sounds, soft, tender to palpation in epigastric region Extremities: no edema, erythema, or tenderness to palpation, DP pulses 2+ bilaterally Skin: no rashes or lesions, warm and dry Psych: appropria
[2021-11-29 12:25] LABS: Hematocrit 23.3 % (37.0-47.0); Hemoglobin 7.3 g/dL (12.0-15.0)
[2021-11-29] MEDS: traMADol HCL (*CRX) 25 MG TABLET PO (16:33)
[2021-11-29] MEDS: DULoxetine HCL 60 MG CAPSULE.DR PO (17:40)
[2021-11-29 18:36] LABS: Hematocrit 25.3 % (37.0-47.0); Hemoglobin 7.6 g/dL (12.0-15.0)
[2021-11-29] MEDS: MORPHINE SULFATE (*CRX) 2 MG/ML INJ IV PUSH (20:07)
[2021-11-29] MEDS: GABAPENTIN 300 MG CAPSULE 900 MG PO (20:07)
[2021-11-30] VITALS (18 sets, daily range): BP systolic 113–162; BP diastolic 43–72; PULSE 69–94; RESP 16–20; TEMP 35.7–36.9; O2SAT 98–100
[2021-11-30 00:33] LABS: Hematocrit 23.3 % (37.0-47.0)
[2021-11-30 00:56] LABS: Hemoglobin 6.9 g/dL (12.0-15.0)
[2021-11-30] MEDS: SODIUM CHLORIDE 0.9% IV 250 ML 30 ML IV CONT (02:26)
[2021-11-30 06:01] LABS: Anion Gap 1 mmol/L (8-16); Blood Urea Nitrogen 16 mg/dL (7-17); Calcium 7.7 mg/dL (8.4-10.2); Carbon Dioxide 25 mmol/L (22-30); Chloride 114 mmol/L (98-107); Estimated CRCL calculation 97 ml/min; Estimated Glomerular Filt Rate > 60; Glucose 94 mg/dL (65-110); Potassium 3.4 mmol/L (3.4-5.0); Sodium 140 mmol/L (137-145)
--- NOTE | 2021-11-30 07:49 | WPDANESPN ---
Anes - Prog Note Post-Op Date/Time: 11/30/21 07:49 Cardiovascular status: normal Respiratory status: normal Airway patency: baseline Mental status: baseline Post-Op hydration status: normal Vital Signs: Last Vital Signs Temp 36.6 C 11/30/21 06:43 Pulse 80 11/30/21 06:43 Resp 18 11/30/21 06:43 BP 123/43 L 11/30/21 06:43 Pulse Ox 100 11/30/21 06:43 Pain Score (VAS): 0 I/O: Intake & Output 11/29/21 11/29/21 11/30/21 15:59 23:59 07:59 Intake Total 1120 250 750 Output Total 8 Balance 1120 250 742 Laboratory Tests 11/30/21 00:15 11/30/21 05:42 11/27/21 11/29/21 11/29/21 09:50 12:02 18:29 Hgb 7.3 L 7.6 L Hct 23.3 L 25.3 L Sodium Potassium Chloride Carbon Dioxide Anion Gap BUN Creatinine Estim Creat Clear Calc Estimated GFR Glucose Calcium Blood Type O Positive Antibody Screen Negative Crossmatch See Detail 11/30/21 11/30/21 00:15 05:42 Hgb 6.9 L* Hct 23.3 L Sodium 140 Potassium 3.4 Chloride 114 H Carbon Dioxide 25 Anion Gap 1 L BUN 16 Creatinine 0.80 Estim Creat Clear Calc 97 Estimated GFR > 60 Glucose 94 Calcium 7.7 L Blood Type Antibody Screen Crossmatch Post-procedural complaints: none Patient Feedback: Patient satisfied with anesthetic care.
[2021-11-30] MEDS: DULoxetine HCL 60 MG CAPSULE.DR PO (08:28)
[2021-11-30] MEDS: PANTOPRAZOLE SODIUM IV 40 MG VIAL IV PUSH (08:28)
[2021-11-30] MEDS: FOLIC ACID 1 MG TABLET PO (08:28)
[2021-11-30 10:19] LABS: Hematocrit 30.7 % (37.0-47.0); Hemoglobin 9.8 g/dL (12.0-15.0); Mean Corpuscular HGB Conc 31.9 g/dl (32-36); Mean Corpuscular Hemoglobin 27.8 pg (26-34); Platelet Count Result 279 k/mm3 (150-375); Red Blood Count 3.53 M/mm3 (4.2-5.4); Red Cell Distribution Width 16.8 % (11.5-14.5); White Blood Count 5.6 K/mm3 (4.5-10.0)
[2021-11-30 10:20] LABS: Hematocrit 31.6 % (37.0-47.0); Hemoglobin 9.8 g/dL (12.0-15.0)
[2021-11-30 10:47] LABS: Iron 35 ug/dL (37-170)
[2021-11-30 10:57] LABS: Percent Iron Saturation 10 % (20-50)
--- NOTE | 2021-11-30 11:32 | PM.IMPN ---
Progress Note: A&P Assessment and Plan (1) Acute GI bleeding: Code(s): K92.2 - Gastrointestinal hemorrhage, unspecified Status: Acute Assessment and Plan: Presented with bloody stools for 4 days with associated epigastric pain Patient does take Celebrex daily. History and symptoms concerning for peptic ulcer Appreciate gastroenterology consultation EGD and colonoscopy this afternoon Continue Protonix b.i.d. Celebrex discontinued (2) Anemia: Qualifiers: Anemia type: unspecified type Qualified Code(s): D64.9 - Anemia, unspecified Code(s): D64.9 - Anemia, unspecified Status: Acute Assessment and Plan: Found to be markedly anemic on presentation with hemoglobin down to 5.5 Secondary to GI bleed as above. Her baseline is unknown. Will attempt to obtain records from her PCP to determine baseline She has been transfused multiple units of PRBC Monitor H&H q.6 hours (3) BAMBI (obstructive sleep apnea): Code(s): G47.33 - Obstructive sleep apnea (adult) (pediatric) Status: Acute Assessment and Plan: Continue with BiPAP (4) Ankylosing spondylitis: Code(s): M45.9 - Ankylosing spondylitis of unspecified sites in spine Status: Acute Assessment and Plan: Established with mammography technician, Dr. Graham at [facility] Receives golimumab infusions every 2 weeks and takes methotrexate weekly Leflunomide 10 mg p.o. daily on hold while NPO. Resume when clinically appropriate Supportive care. Analgesics available as needed (5) Abnormal TSH: Code(s): R79.89 - Other specified abnormal findings of blood chemistry Status: Acute Assessment and Plan: TSH is slightly decreased but T4 and T3 are normal Will need repeat TSH with reflex in 4-6 weeks (6) Bariatric surgery status: Code(s): Z98.84 - Bariatric surgery status Status: Acute Assessment and Plan: Patient is s/p Leo-en-Y gastric bypass in 2014 (7) Epistaxis: Code(s): R04.0 - Epistaxis Status: Acute Assessment and Plan: Nosebleed last night Self-limited, resolved Continue to monitor H&H Subjective Date/time seen: 11/30/21 11:32 Patient is alert and oriented this morning. She is sitting up in the chair without acute distress. He patient did receive a unit of packed red blood cells during the night. Pending repeat H& H. Patient will continue to have q.6 hours H and HS, if stable will plan to discharge tomorrow. Patient is to follow-up with gastroenterology upon discharge as well as repeat labs as an outpatient. No acute events reported by RN during the night. Review of Systems Review of Systems: All systems reviewed & are unremarkable except as noted in HPI and below Exam Narrative: General: Well-nourished, well-appearing 61 year-old female, sitting up in bed, comfortable, NARD Neuro: awake, alert and oriented x4, speech clear, no focal neuro deficits noted HEENMT: normocephalic, atraumatic, EOMI, sclerae anicteric Respiratory: clear to auscultation bilaterally, nonlabored breathing Cardio: regular rate, regular rhythm with S1-S2 Abdomen: nondistended, normoactive bowel sounds, soft, tender to palpation in epigastric region Extremities: no edema, erythema, or tenderness to palpation, DP pulses 2+ bilaterally Skin: no rashes or lesions, warm and dry Psych: appropriate mood and affect, judgment and insight intact Objective Data Vital Signs Vital Signs: Vital Signs - 24 hr 11/29/21 11:50 11/29/21 18:08 11/29/21 19:41 Temperature 98.3 F 97.5 F L 96.3 F L Pulse Rate 84 82 88 Respiratory Rate 16 16 20 Blood Pressure 140/64 148/67 H 143/69 H Pulse Oximetry 100 97 96 11/29/21 20:00 11/29/21 23:30 11/30/21 00:00 Temperature 97.4 F L Pulse Rate 88 88 85 Respiratory Rate 20 18 Blood Pressure 155/68 H Pulse Oximetry 96 96 100 11/30/21 02:37 11/30/21 02:54 11/30/21 02:58 Temperature 97 F L 9
[2021-11-30 11:36] LABS: Folic Acid > 20.0 ng/mL (2.76->20)
--- NOTE | 2021-11-30 14:53 | WPDGIPROGNO ---
Progress Note: A&P Assessment and Plan (1) Acute blood loss anemia: Code(s): D62 - Acute posthemorrhagic anemia Status: Acute Assessment and Plan: today blood transfusion, patient denies more obvious bleeding probably diverticular source (2) Diverticular hemorrhage: Code(s): K57.31 - Diverticulosis of large intestine without perforation or abscess with bleeding Status: Acute Assessment and Plan: no more bleeding (3) Rectal bleeding: Code(s): K62.5 - Hemorrhage of anus and rectum Status: Acute (4) Acute LUQ pain: Code(s): R10.12 - Left upper quadrant pain Status: Acute Assessment and Plan: resolved (5) Bariatric surgery status: Code(s): Z98.84 - Bariatric surgery status Status: Acute (6) Ankylosing spondylitis: Code(s): M45.9 - Ankylosing spondylitis of unspecified sites in spine Status: Acute Subjective Date/time seen: 11/30/21 14:53 Interval history: egd without acute findings, colonoscopy with diverticulosis and old blood- probably cause of bleeding. Denies any more bleeding since colonoscopy and abdominal pain is gone, tolerated diet. Review of Systems Review of Systems: All systems reviewed & are unremarkable except as noted in HPI and below Exam Const: General: comfortable and no acute distress Other: obese HENMT: General nose exam: Normal nares present Eyes: General: appearance normal, both eyes and all related structures Neck: Neck: no JVD Resp: Auscultation: clear to auscultation bilaterally Cardio: Rate: regular rate Rhythm: regular rhythm GI: Inspection: non-distended GI Palp: Yes Soft to palpation and No Guarding due to palpation present (GI) Auscultation: normal bowel sounds Skin: General skin exam: normal color Neuro: Speech: normal speech Extrem: General: normal to inspection Psych: Mental Status: mental status grossly normal Objective Data Vital Signs Vital Signs: Vital Signs - 24 hr 11/29/21 18:08 11/29/21 19:41 11/29/21 20:00 Temperature 97.5 F L 96.3 F L Pulse Rate 82 88 88 Respiratory Rate 16 20 20 Blood Pressure 148/67 H 143/69 H Pulse Oximetry 97 96 96 11/29/21 23:30 11/30/21 00:00 11/30/21 02:37 Temperature 97.4 F L 97 F L Pulse Rate 88 85 75 Respiratory Rate 18 18 Blood Pressure 155/68 H 134/56 L Pulse Oximetry 96 100 99 11/30/21 02:54 11/30/21 02:58 11/30/21 03:54 Temperature 96.4 F L 98 F 96.5 F L Pulse Rate 77 77 73 Respiratory Rate 18 16 20 Blood Pressure 113/53 L 115/53 L 117/49 L Pulse Oximetry 100 98 98 11/30/21 04:20 11/30/21 04:54 11/30/21 05:16 Temperature 97 F L 97 F L Pulse Rate 72 69 73 Respiratory Rate 17 18 18 Blood Pressure 128/54 L 133/55 L Pulse Oximetry 98 99 99 11/30/21 05:27 11/30/21 05:43 11/30/21 06:43 Temperature 97 F L 96.2 F L 97.9 F Pulse Rate 73 75 80 Respiratory Rate 18 17 18 Blood Pressure 133/55 L 121/55 L 123/43 L Pulse Oximetry 99 99 100 11/30/21 07:48 11/30/21 08:00 11/30/21 10:05 Temperature 98.4 F 98.4 F 97.9 F Pulse Rate 85 85 94 Respiratory Rate 16 16 16 Blood Pressure 145/65 H 145/65 H 162/70 H Pulse Oximetry 99 99 98 Intake/Output Intake/Output: Intake & Output 11/27/21 11/28/21 11/29/21 11/30/21 23:59 23:59 23:59 23:59 Intake Total 1940 3150 2370 1415 Output Total 800 1950 8 Balance 1140 1200 2370 1407 Meds/Results Medications: Active Medications Generic Name Dose Route Start Last Admin Trade Name Freq PRN Reason Stop Dose Admin Hydrocodone Bitart/Acetaminophen 1 tab 11/27/21 15:44 11/29/21 02:51 Hydrocodone/Acetaminophen (*Crx) 5-325 Mg Tablet PO 1 tab Q6H PRN Administration Pain Rated 7-10 Duloxetine HCl 60 mg 11/29/21 17:28 11/30/21 08:28 Duloxetine Hcl 60 Mg Capsule.Dr PO 60 mg DAILY OCTAVIA Administration Folic Acid 1 mg 11/30/21 09:00 11/30/21 08:28 Folic Acid 1 Mg Tablet PO 1 mg DAILY OCTAVIA Administration Gabapentin
[2021-11-30] MEDS: traMADol HCL (*CRX) 25 MG TABLET PO (15:11)
[2021-11-30 16:15] LABS: Hematocrit 29.5 % (37.0-47.0); Hemoglobin 9.2 g/dL (12.0-15.0)
[2021-11-30] MEDS: GABAPENTIN 300 MG CAPSULE 900 MG PO (20:29)
[2021-11-30] MEDS: LEFLUNOMIDE 10 MG TABLET PO (20:29)
[2021-11-30 22:01] LABS: Hematocrit 25.5 % (37.0-47.0)
[2021-11-30] MEDS: HYDROcodone/acetaminophen (*CRX) 5-325 MG TABLET 1 TAB PO (23:10)
[2021-11-30] MEDS: traZODone HCL 50 MG TABLET PO (23:10)
[2021-12-01] VITALS (7 sets, daily range): BP systolic 123–149; BP diastolic 55–87; PULSE 76–92; RESP 14–20; TEMP 36.1–36.6; O2SAT 95–100
[2021-12-01 05:33] LABS: Basophils Absolute Auto 0.1 K/mm3 (0.0-0.1); Basophils Percent Auto 1.3 % (0.2-1.2); Eosinophils Absolute Auto 0.1 K/mm3 (0-0.3); Eosinophils Percent Auto 3.6 % (0-4.4); Hematocrit 26.5 % (37.0-47.0); Hemoglobin 8.3 g/dL (12.0-15.0); Immature Granulocyte Absolute 0.01 K/mm3 (0.00-0.031); Immature Granulocyte Percent A 0.3 % (0-0.5); Lymphocytes Percent Auto 33.4 % (18.3-44.2); Mean Corpuscular HGB Conc 31.3 g/dl (32-36); Mean Corpuscular Hemoglobin 27.6 pg (26-34); Monocytes Absolute Auto 0.5 K/mm3 (0.1-0.6); Monocytes Percent Auto 13.9 % (2.6-8.5); Neutrophils Absolute Auto 1.9 K/mm3 (1.3-6.7); Neutrophils Percent Auto 47.5 % (45.5-73.1); Platelet Count Result 224 k/mm3 (150-375); Red Blood Count 3.01 M/mm3 (4.2-5.4); White Blood Count 3.9 K/mm3 (4.5-10.0)
[2021-12-01 05:50] LABS: Alanine Aminotransferase 11 U/L (4-35); Albumin Level 2.7 g/dL (3.5-5.1); Alkaline Phosphatase 51 U/L (38-126); Anion Gap 0 mmol/L (8-16); Aspartate Amino Transferase 23 U/L (14-36); Bilirubin,Total 0.3 mg/dL (0.2-1.3); Blood Urea Nitrogen 15 mg/dL (7-17); Calcium 7.7 mg/dL (8.4-10.2); Carbon Dioxide 27 mmol/L (22-30); Chloride 113 mmol/L (98-107); Estimated CRCL calculation 87 ml/min; Estimated Glomerular Filt Rate > 60; Glucose 90 mg/dL (65-110); Magnesium 2.4 mg/dL (1.6-2.3); Potassium 3.1 mmol/L (3.4-5.0); Sodium 140 mmol/L (137-145)
[2021-12-01] MEDS: PANTOPRAZOLE SODIUM IV 40 MG VIAL IV PUSH (07:57)
[2021-12-01] MEDS: FOLIC ACID 1 MG TABLET PO (07:57)
[2021-12-01] MEDS: DULoxetine HCL 60 MG CAPSULE.DR PO (07:57)
[2021-12-01] MEDS: traMADol HCL (*CRX) 25 MG TABLET PO ×2 (08:04→13:58)
[2021-12-01 10:05] LABS: Hematocrit 26.2 % (37.0-47.0); Hemoglobin 8.2 g/dL (12.0-15.0)
--- NOTE | 2021-12-01 10:56 | PM.IMPN ---
Progress Note: A&P Assessment and Plan (1) Acute GI bleeding: Code(s): K92.2 - Gastrointestinal hemorrhage, unspecified Status: Acute Assessment and Plan: Presented with bloody stools for 4 days with associated epigastric pain Patient does take Celebrex daily. History and symptoms concerning for peptic ulcer Appreciate gastroenterology consultation EGD and colonoscopy this afternoon Continue Protonix b.i.d. Celebrex discontinued (2) Anemia: Qualifiers: Anemia type: unspecified type Qualified Code(s): D64.9 - Anemia, unspecified Code(s): D64.9 - Anemia, unspecified Status: Acute Assessment and Plan: Found to be markedly anemic on presentation with hemoglobin down to 5.5 Secondary to GI bleed as above. Her baseline is unknown. Will attempt to obtain records from her PCP to determine baseline She has been transfused multiple units of PRBC Monitor H&H q.6 hours Hemoglobin continues to downtrend. Continue to monitor (3) BAMBI (obstructive sleep apnea): Code(s): G47.33 - Obstructive sleep apnea (adult) (pediatric) Status: Acute Assessment and Plan: Continue with BiPAP (4) Ankylosing spondylitis: Code(s): M45.9 - Ankylosing spondylitis of unspecified sites in spine Status: Acute Assessment and Plan: Established with track announcer, Dr. Graham at [facility] Receives golimumab infusions every 2 weeks and takes methotrexate weekly Leflunomide 10 mg p.o. daily on hold while NPO. Resume when clinically appropriate Supportive care. Analgesics available as needed (5) Abnormal TSH: Code(s): R79.89 - Other specified abnormal findings of blood chemistry Status: Acute Assessment and Plan: TSH is slightly decreased but T4 and T3 are normal Will need repeat TSH with reflex in 4-6 weeks (6) Bariatric surgery status: Code(s): Z98.84 - Bariatric surgery status Status: Acute Assessment and Plan: Patient is s/p Leo-en-Y gastric bypass in 2014 (7) Epistaxis: Code(s): R04.0 - Epistaxis Status: Acute Assessment and Plan: Nosebleed last night Self-limited, resolved Continue to monitor H&H Subjective Date/time seen: 12/01/21 10:56 Patient is alert and oriented. She continues to have decreasing hemoglobin. Continues on Protonix. Patient denies any bowel movements and is able to pass gas without difficulty. Pending GI recommendation for further follow-up. Patient should plan to discharge on the following day. No acute concerns reported by RN during the night Review of Systems Review of Systems: All systems reviewed & are unremarkable except as noted in HPI and below Exam Narrative: General: No acute distress. Obese Mental Status: Awake, alert and oriented to person, place, and time with clear speech. Skin: Skin in warm, dry and intact without rashes or lesions. Head: Normocephalic and atraumatic. Eyes: Conjunctivae are clear without exudates or hemorrhage. Sclera is non-icteric. EOM are intact, PERRLA. Ears: The external ear and canal are non-tender and without swelling or discharge. Nose: Nasal mucosa is pink and moist. Septum midline. Nares patent bilaterally. Throat: Oral mucosa pink and moist with good dentition. Tongue midline. Neck: The neck supple without adenopathy. Trachea midline. No JVD. Cardiac: S1 and S2 regular rate and rhythm. No murmurs, gallops, or rubs auscultated. Respiratory: Chest wall symmetric, nontender and without deformity or trauma. Respirations even and unlabored. Lung sounds are clear to auscultation in all lobes bilaterally without wheezes, rhonchi, or rales. Abdominal: Abdomen soft, round and non-tender to palpation. Bowel sounds present and normoactive in all 4 quadrants. Spine: Neck and back with grossly normal curvature, no deformity in appearance or signs of trauma. Extremities: Upper and lower extremities atraumatic withou
--- NOTE | 2021-12-01 10:57 | PCCCNOTE ---
On 12/01/21, the student, [Ines Monzon ], provided care and completed [facility] documentation on this patient. I have reviewed the student's documentation and agree with the findings.
--- NOTE | 2021-12-01 13:59 | PC.NURSE ---
On 12/01/21, the student, [Carmelo Hawkins, Dora Walker], provided care and completed [facility] documentation on this patient. I have reviewed the student's documentation and agree with the findings.
[2021-12-01 16:13] LABS: Hematocrit 28.5 % (37.0-47.0); Hemoglobin 8.8 g/dL (12.0-15.0)
--- NOTE | 2021-12-01 16:19 | WPDGIPROGNO ---
Progress Note: A&P Assessment and Plan (1) Acute blood loss anemia: Code(s): D62 - Acute posthemorrhagic anemia Status: Acute Assessment and Plan: blood transfusion yesterday and hb ~ mid 8's but denies more obvious bleeding probably diverticular source no objection to discharge by GI standpoint probably also will need iron supplement (already on mvi since bariatric surgery) check h/h as outpatient call if questions (2) Diverticular hemorrhage: Code(s): K57.31 - Diverticulosis of large intestine without perforation or abscess with bleeding Status: Acute Assessment and Plan: no more bleeding this was cause of lgib (3) Rectal bleeding: Code(s): K62.5 - Hemorrhage of anus and rectum Status: Acute Assessment and Plan: resolved (4) Acute LUQ pain: Code(s): R10.12 - Left upper quadrant pain Status: Acute Assessment and Plan: resolved (5) Bariatric surgery status: Code(s): Z98.84 - Bariatric surgery status Status: Acute (6) Ankylosing spondylitis: Code(s): M45.9 - Ankylosing spondylitis of unspecified sites in spine Status: Acute Subjective Date/time seen: 12/01/21 16:19 Interval history: no more bleeding, denies any abdominal pain and tolerating diet, she is doing ok Review of Systems Review of Systems: All systems reviewed & are unremarkable except as noted in HPI and below Exam Const: General: comfortable and no acute distress Other: obese HENMT: General nose exam: Normal nares present Eyes: General: appearance normal, both eyes and all related structures Neck: Neck: no JVD Resp: Auscultation: clear to auscultation bilaterally Cardio: Rate: regular rate Rhythm: regular rhythm GI: Inspection: non-distended GI Palp: Yes Soft to palpation and No Guarding due to palpation present (GI) Auscultation: normal bowel sounds Skin: General skin exam: normal color Neuro: Speech: normal speech Extrem: General: normal to inspection Psych: Mental Status: mental status grossly normal Objective Data Vital Signs Vital Signs: Vital Signs - 24 hr 11/30/21 18:14 11/30/21 21:26 11/30/21 22:45 Temperature 98.3 F 97.6 F Pulse Rate 84 78 79 Respiratory Rate 18 18 Blood Pressure 126/67 146/72 H Pulse Oximetry 99 99 98 12/01/21 00:51 12/01/21 05:22 12/01/21 09:35 Temperature 97.9 F 97.0 F L 97.8 F Pulse Rate 82 76 86 Respiratory Rate 16 20 16 Blood Pressure 123/55 L 131/61 147/87 H Pulse Oximetry 98 100 95 12/01/21 13:55 Temperature 97.9 F Pulse Rate 76 Respiratory Rate 18 Blood Pressure 148/66 H Pulse Oximetry 99 Intake/Output Intake/Output: Intake & Output 11/28/21 11/29/21 11/30/21 12/01/21 23:59 23:59 23:59 23:59 Intake Total 3150 2370 2185 880 Output Total 1950 8 Balance 1200 2370 2177 880 Meds/Results Medications: Active Medications Generic Name Dose Route Start Last Admin Trade Name Freq PRN Reason Stop Dose Admin Hydrocodone Bitart/Acetaminophen 1 tab 11/27/21 15:44 11/30/21 23:10 Hydrocodone/Acetaminophen (*Crx) 5-325 Mg Tablet PO 1 tab Q6H PRN Administration Pain Rated 7-10 Duloxetine HCl 60 mg 11/29/21 17:28 12/01/21 07:57 Duloxetine Hcl 60 Mg Capsule.Dr PO 60 mg DAILY OCTAVIA Administration Folic Acid 1 mg 11/30/21 09:00 12/01/21 07:57 Folic Acid 1 Mg Tablet PO 1 mg DAILY OCTAVIA Administration Gabapentin 900 mg 11/29/21 21:00 11/30/21 20:29 Gabapentin 300 Mg Capsule PO 900 mg HS OCTAVIA Administration Leflunomide 10 mg 11/30/21 21:00 11/30/21 20:29 Leflunomide 10 Mg Tablet PO 10 mg HS OCTAVIA Administration Lorazepam 0.5 mg 11/27/21 15:44 Lorazepam Inj (*Crx) 2 Mg/Ml Vial IV PUSH Q6H PRN Anxiety Morphine Sulfate 2 mg 11/28/21 05:40 11/29/21 20:07 Morphine Sulfate (*Crx) 2 Mg/Ml Inj IV PUSH 2 mg Q4H PRN Administration Pain Rated 7-10 Ondansetron HCl 4 mg 11/27/21 10:22 0
[2021-12-01] MEDS: LEFLUNOMIDE 10 MG TABLET PO (20:05)
[2021-12-01] MEDS: GABAPENTIN 300 MG CAPSULE 900 MG PO (20:05)
[2021-12-01] MEDS: HYDROcodone/acetaminophen (*CRX) 5-325 MG TABLET 1 TAB PO (20:05)
[2021-12-01] MEDS: traZODone HCL 50 MG TABLET PO (20:06)
[2021-12-01 22:12] LABS: Hematocrit 22.4 % (37.0-47.0)
[2021-12-01 22:17] LABS: Hemoglobin 6.8 g/dL (12.0-15.0)
[2021-12-01 22:38] LABS: Hematocrit 22.3 % (37.0-47.0)
[2021-12-01 22:42] LABS: Hemoglobin 6.8 g/dL (12.0-15.0)
[2021-12-02] VITALS (21 sets, daily range): BP systolic 98–153; BP diastolic 46–68; PULSE 70–129; RESP 14–20; TEMP 36–36.8; O2SAT 96–100
[2021-12-02] MEDS: POTASSIUM CHLORIDE 20 MEQ TABLET 40 MEQ PO (00:07)
[2021-12-02] MEDS: SODIUM CHLORIDE 0.9% IV 250 ML 30 ML IV CONT ×2 (00:30→23:40)
--- NOTE | 2021-12-02 04:04 | PC.NURSE ---
0350 patient c/o right upper abd cramping and then up to bedside commode to have bm of bright red blood and large clot. blood infusing as ordered.
[2021-12-02] MEDS: DULoxetine HCL 60 MG CAPSULE.DR PO (08:50)
[2021-12-02] MEDS: FOLIC ACID 1 MG TABLET PO (08:50)
[2021-12-02] MEDS: PANTOPRAZOLE SODIUM IV 40 MG VIAL IV PUSH (08:51)
[2021-12-02 08:59] LABS: Basophils Absolute Auto 0.1 K/mm3 (0.0-0.1); Basophils Percent Auto 1.3 % (0.2-1.2); Eosinophils Absolute Auto 0.1 K/mm3 (0-0.3); Eosinophils Percent Auto 1.1 % (0-4.4); Hematocrit 31.5 % (37.0-47.0); Hemoglobin 9.9 g/dL (12.0-15.0); Immature Granulocyte Absolute 0.03 K/mm3 (0.00-0.031); Immature Granulocyte Percent A 0.5 % (0-0.5); Lymphocytes Absolute Auto 1.65 K/mm3 (0.9-3.2); Lymphocytes Percent Auto 26.8 % (18.3-44.2); Mean Corpuscular HGB Conc 31.4 g/dl (32-36); Mean Corpuscular Hemoglobin 27.5 pg (26-34); Mean Corpuscular Volume 87.5 fl (80-100); Mean Platelet Volume 10.2 fl (7.4-10.4); Monocytes Absolute Auto 0.7 K/mm3 (0.1-0.6); Monocytes Percent Auto 11.5 % (2.6-8.5); Neutrophils Absolute Auto 3.6 K/mm3 (1.3-6.7); Neutrophils Percent Auto 58.8 % (45.5-73.1); Platelet Count Result 297 k/mm3 (150-375); Red Cell Distribution Width 16.6 % (11.5-14.5); White Blood Count 6.2 K/mm3 (4.5-10.0)
[2021-12-02 09:16] LABS: Alanine Aminotransferase 15 U/L (4-35); Albumin Level 3.1 g/dL (3.5-5.1); Alkaline Phosphatase 53 U/L (38-126); Anion Gap 5 mmol/L (8-16); Aspartate Amino Transferase 25 U/L (14-36); Bilirubin,Total 0.6 mg/dL (0.2-1.3); Blood Urea Nitrogen 29 mg/dL (7-17); Calcium 7.9 mg/dL (8.4-10.2); Carbon Dioxide 23 mmol/L (22-30); Chloride 109 mmol/L (98-107); Estimated CRCL calculation 87 ml/min; Estimated Glomerular Filt Rate > 60; Glucose 97 mg/dL (65-110); Potassium 3.8 mmol/L (3.4-5.0); Sodium 137 mmol/L (137-145)
[2021-12-02] MEDS: LORazepam INJ (*CRX) 2 MG/ML VIAL 0.5 MG IV PUSH (09:23)
--- NOTE | 2021-12-02 11:37 | P.PNIM_ITS ---
Progress Note: A&P Assessment and Plan (1) Acute GI bleeding: Code(s): K92.2 - Gastrointestinal hemorrhage, unspecified Status: Acute Assessment and Plan: Presented with bloody stools for 4 days with associated epigastric pain * Patient does take Celebrex daily. History and symptoms concerning for peptic ulcer * Appreciate gastroenterology consultation * EGD and colonoscopy did not reveal an acute bleed * Patient's hemoglobin dropped on 12/03/2019 2-6.8 and therefore she required 2 units of packed red blood cell transfusion. Patient has received multiple units of packed red blood cells. * Patient will have a new med GI scan performed * General surgery was consulted for further evaluation * Continue Protonix b.i.d. * Celebrex discontinued * (2) Anemia: Qualifiers: Anemia type: unspecified type Qualified Code(s): D64.9 - Anemia, unspecified Code(s): D64.9 - Anemia, unspecified Status: Acute Assessment and Plan: Found to be markedly anemic on presentation with hemoglobin down to 5.5 * Secondary to GI bleed as above. Her baseline is unknown. Will attempt to obtain records from her PCP to determine baseline * She has been transfused multiple units of PRBC * Monitor H&H q.6 hours * Hemoglobin continues to downtrend. Continue to monitor (3) BAMBI (obstructive sleep apnea): Code(s): G47.33 - Obstructive sleep apnea (adult) (pediatric) Status: Acute Assessment and Plan: Continue with BiPAP (4) Ankylosing spondylitis: Code(s): M45.9 - Ankylosing spondylitis of unspecified sites in spine Status: Acute Assessment and Plan: Established with geography professor, Dr. Graham at [facility] * Receives golimumab infusions every 2 weeks and takes methotrexate weekly * Leflunomide 10 mg p.o. daily on hold while NPO. Resume when clinically appropriate * Supportive care. Analgesics available as needed (5) Abnormal TSH: Code(s): R79.89 - Other specified abnormal findings of blood chemistry Status: Acute Assessment and Plan: TSH is slightly decreased but T4 and T3 are normal * Will need repeat TSH with reflex in 4-6 weeks (6) Bariatric surgery status: Code(s): Z98.84 - Bariatric surgery status Status: Acute Assessment and Plan: Patient is s/p Leo-en-Y gastric bypass in 2014 (7) Epistaxis: Code(s): R04.0 - Epistaxis Status: Acute Assessment and Plan: Nosebleed last night * Self-limited, resolved * Continue to monitor H&H * --resolved Subjective Date/time seen: 12/02/21 11:37 Patient remains alert and oriented. She is lying in bed and does not appear to be in acute distress. Patient reported several loose, dark bloody stools during the night. Patient's hemoglobin dropped to 6.8. Patient received 2 units of packed red blood cells. Gastroenterology was able to consult General surgery for further evaluation. Patient will go for a new [facility] GI bleeding scan this morning for further evaluation of the acute bleed. Patient has been made NPO. Review of Systems Review of Systems: All systems reviewed & are unremarkable except as noted in HPI and below Exam Narrative: General: No acute distress. Obese Mental Status: Awake, alert and oriented to person, place, and time with clear speech. Skin: Skin in warm, dry and intact without rashes or lesions. Head: Normocephalic and atraumatic. Eyes: Conjunctivae are clear without exudates or
--- NOTE | 2021-12-02 11:37 | PM.IMPN ---
Progress Note: A&P Assessment and Plan (1) Acute GI bleeding: Code(s): K92.2 - Gastrointestinal hemorrhage, unspecified Status: Acute Assessment and Plan: Presented with bloody stools for 4 days with associated epigastric pain Patient does take Celebrex daily. History and symptoms concerning for peptic ulcer Appreciate gastroenterology consultation EGD and colonoscopy did not reveal an acute bleed Patient's hemoglobin dropped on 12/03/2019 2-6.8 and therefore she required 2 units of packed red blood cell transfusion. Patient has received multiple units of packed red blood cells. Patient will have a new med GI scan performed General surgery was consulted for further evaluation Continue Protonix b.i.d. Celebrex discontinued (2) Anemia: Qualifiers: Anemia type: unspecified type Qualified Code(s): D64.9 - Anemia, unspecified Code(s): D64.9 - Anemia, unspecified Status: Acute Assessment and Plan: Found to be markedly anemic on presentation with hemoglobin down to 5.5 Secondary to GI bleed as above. Her baseline is unknown. Will attempt to obtain records from her PCP to determine baseline She has been transfused multiple units of PRBC Monitor H&H q.6 hours Hemoglobin continues to downtrend. Continue to monitor (3) BAMBI (obstructive sleep apnea): Code(s): G47.33 - Obstructive sleep apnea (adult) (pediatric) Status: Acute Assessment and Plan: Continue with BiPAP (4) Ankylosing spondylitis: Code(s): M45.9 - Ankylosing spondylitis of unspecified sites in spine Status: Acute Assessment and Plan: Established with load tester, Dr. Graham at [facility] Receives golimumab infusions every 2 weeks and takes methotrexate weekly Leflunomide 10 mg p.o. daily on hold while NPO. Resume when clinically appropriate Supportive care. Analgesics available as needed (5) Abnormal TSH: Code(s): R79.89 - Other specified abnormal findings of blood chemistry Status: Acute Assessment and Plan: TSH is slightly decreased but T4 and T3 are normal Will need repeat TSH with reflex in 4-6 weeks (6) Bariatric surgery status: Code(s): Z98.84 - Bariatric surgery status Status: Acute Assessment and Plan: Patient is s/p Leo-en-Y gastric bypass in 2014 (7) Epistaxis: Code(s): R04.0 - Epistaxis Status: Acute Assessment and Plan: Nosebleed last night Self-limited, resolved Continue to monitor H&H --resolved Subjective Date/time seen: 12/02/21 11:37 Patient remains alert and oriented. She is lying in bed and does not appear to be in acute distress. Patient reported several loose, dark bloody stools during the night. Patient's hemoglobin dropped to 6.8. Patient received 2 units of packed red blood cells. Gastroenterology was able to consult General surgery for further evaluation. Patient will go for a new [facility] GI bleeding scan this morning for further evaluation of the acute bleed. Patient has been made NPO. Review of Systems Review of Systems: All systems reviewed & are unremarkable except as noted in HPI and below Exam Narrative: General: No acute distress. Obese Mental Status: Awake, alert and oriented to person, place, and time with clear speech. Skin: Skin in warm, dry and intact without rashes or lesions. Head: Normocephalic and atraumatic. Eyes: Conjunctivae are clear without exudates or hemorrhage. Sclera is non-icteric. EOM are intact, PERRLA. Ears: The external ear and canal are non-tender and without swelling or discharge. Nose: Nasal mucosa is pink and moist. Septum midline. Nares patent bilaterally. Throat: Oral mucosa pink and moist with good dentition. Tongue midline. Neck: The neck supple without adenopathy. Trachea midline. No JVD. Cardiac: S1 and S2 regular rate and rhythm. No murmurs, gallops, or rubs auscultated. Respiratory: Chest wall symmetri
--- NOTE | 2021-12-02 13:13 | PCCCNOTE ---
On 12/02/21, the student, [Ines Monzon ], provided care and completed [facility] documentation on this patient. I have reviewed the student's documentation and agree with the findings.
[2021-12-02] MEDS: traMADol HCL (*CRX) 25 MG TABLET PO (13:31)
--- NOTE | 2021-12-02 14:22 | PM.CNGS ---
Assessment and Plan Assessment and plan (1) Acute GI bleeding: Code(s): K92.2 - Gastrointestinal hemorrhage, unspecified Status: Acute Assessment and Plan: I have reviewed the CT and tagged red blood cell scan. I discussed with the patient that the tagged red blood cell scan is fairly sensitive for any signs of even minor bleeding, and this shows no active bleeding. I also do not have a clear location for her bleeding. Diverticular source is suspected, but other sources of bleeding are certainly possible. She has had a gastric bypass, therefore EGD was only able to assess the gastric pouch and gastrojejunostomy. The excluded stomach and duodenum were not able to be assessed, therefore there is always possibilities of her a duodenal ulcer or other source of bleeding somewhere else throughout the bowel. The patient does also describe easy bruisability, but she is not on any blood thinners. Possibly being evaluated by Hematology might help rule out any coagulopathies. If she continues to bleed, FFP and/or platelets might be beneficial to help with hemostasis. I discussed with air that without a true identifiable source, the only surgery that could be beneficial would be a subtotal colectomy if she were in need of emergent surgery for ongoing bleeding. I would likely try a repeated tagged red blood cell scan 1st before considering this option as long as patient remains hemodynamically stable. Will continue to follow along with patient for any ongoing bleeding. Patient may have a low-fiber diet today and will reassess with serial labs and abdominal exams. (2) Acute blood loss anemia: Code(s): D62 - Acute posthemorrhagic anemia Status: Acute (3) Acute LUQ pain: Code(s): R10.12 - Left upper quadrant pain Status: Acute (4) Bariatric surgery status: Code(s): Z98.84 - Bariatric surgery status Status: Acute (5) Easy bruising: Code(s): R23.8 - Other skin changes Status: Acute History of Present Illness Consult details Consult date: 12/02/21 Reason for consult: other (Recurrent GI bleed) Requesting physician: Faraz Guthrie MD Narrative: This is a 61-year-old woman who has been experiencing maroon-colored stools off and on for the past 7-8 days. She states that about 8 days ago she was having some weakness and tiredness. She did not have any blood in her stools initially, but a day or 2 later she did notice maroon colored stool. She had some occasional epigastric pain but denies any hematemesis. She does have a history of Leo-en-Y gastric bypass. She denies taking NSAIDs but does take Celebrex. She is not on any blood thinners. She required 4 units of packed red blood cells on initial presentation. She then had noticed no more bleeding and underwent EGD and colonoscopy with Dr. Guthrie. No evidence of ongoing bleeding was noted but there was some evidence of prior GI bleed in the sigmoid colon. He was suspecting possible diverticular bleed as the source. Her EGD showed no evidence of ulcer or bleeding. She was doing well then for a couple more days and was close to being discharged yesterday. She was kept 1 more night continued blood monitoring and last night her hemoglobin did drop from 8.8-6.8. She has had 1 more episode of maroon-colored stool that happened last night, but has not had any more GI bleed that she has noticed since. A tagged red blood cell scan was obtained this morning which showed no active bleeding. Review of Systems Review of Systems: All systems reviewed & are unremarkable except as noted in HPI and below Constitutional: Constitutional: Denies chills and Denies fever(s) Eyes: Eyes: Denies change in vision ENT: Denies hearing loss, Denies neck pain and Denies sore throat Cardiovascular: Cardiovascular: Denies chest pain and Denies dyspnea Respiratory: Respiratory: Denies cough, Denies dyspnea and Denies wheezing Gastrointestin
[2021-12-02 14:37] LABS: Hematocrit 27.8 % (37.0-47.0)
--- NOTE | 2021-12-02 15:11 | WPDGIPROGNO ---
Progress Note: A&P Assessment and Plan (1) Acute blood loss anemia: Code(s): D62 - Acute posthemorrhagic anemia Status: Acute Assessment and Plan: she has another episode of bleeding and hb dropped gib scan today negative for active bleeding- she has not had any more GIB since wonder if could have been diverticular bleeding (colonoscopy found diverticulosis with old blood), another possibility if bleeding from excluded stomach or duodenum (she is post gastric bypass) surgery on board continue to monitor, ok to resume diet (2) Diverticular hemorrhage: Code(s): K57.31 - Diverticulosis of large intestine without perforation or abscess with bleeding Status: Acute Assessment and Plan: most likely cause of gib continue to monitor (3) Rectal bleeding: Code(s): K62.5 - Hemorrhage of anus and rectum Status: Acute (4) Acute LUQ pain: Code(s): R10.12 - Left upper quadrant pain Status: Acute Assessment and Plan: resolved (5) Bariatric surgery status: Code(s): Z98.84 - Bariatric surgery status Status: Acute (6) Ankylosing spondylitis: Code(s): M45.9 - Ankylosing spondylitis of unspecified sites in spine Status: Acute Subjective Date/time seen: 12/02/21 15:11 Interval history: yesterday had episode of tracie stool again and hb dropped, required blood transfusion. Then I ordered RBC scan this morning which was negative for active bleeding. She is doing well right now and has not had any more bleeding Review of Systems Review of Systems: All systems reviewed & are unremarkable except as noted in HPI and below Exam Const: General: comfortable and no acute distress HENMT: General nose exam: Normal nares present Eyes: General: appearance normal, both eyes and all related structures Neck: Neck: no JVD Resp: Auscultation: clear to auscultation bilaterally Cardio: Rate: regular rate Rhythm: regular rhythm GI: Inspection: non-distended GI Palp: Yes Soft to palpation Skin: General skin exam: normal color Neuro: General: gait normal Speech: normal speech Extrem: General: normal to inspection Psych: Mental Status: mental status grossly normal Objective Data Vital Signs Vital Signs: Vital Signs - 24 hr 12/01/21 18:13 12/01/21 20:44 12/01/21 21:07 Temperature 97.9 F 97.7 F Pulse Rate 80 92 Respiratory Rate 14 20 Blood Pressure 149/81 H 143/66 H Pulse Oximetry 100 95 97 12/02/21 00:03 12/02/21 00:30 12/02/21 00:45 Temperature 97.2 F L 97.2 F L 97.6 F Pulse Rate 82 82 89 Respiratory Rate 20 20 20 Blood Pressure 110/60 110/60 100/53 L Pulse Oximetry 100 100 100 12/02/21 01:45 12/02/21 02:45 12/02/21 03:40 Temperature 97 F L 96.9 F L 97 F L Pulse Rate 78 100 81 Respiratory Rate 20 20 20 Blood Pressure 100/49 L 100/52 L 107/68 Pulse Oximetry 100 100 99 12/02/21 03:45 12/02/21 03:58 12/02/21 04:15 Temperature 97.2 F L 97.2 F L 97 F L Pulse Rate 81 81 81 Respiratory Rate 20 20 20 Blood Pressure 114/59 L 114/59 L 107/68 Pulse Oximetry 100 100 99 12/02/21 05:15 12/02/21 06:15 12/02/21 06:30 Temperature 97.2 F L 96.9 F L 96.8 F L Pulse Rate 80 74 74 Respiratory Rate 20 20 20 Blood Pressure 107/56 L 118/58 L 110/63 Pulse Oximetry 98 97 100 12/02/21 11:41 12/02/21 14:10 Temperature 98.3 F 97.9 F Pulse Rate 82 80 Respiratory Rate 14 20 Blood Pressure 145/66 H 149/64 H Pulse Oximetry 100 100 Intake/Output Intake/Output: Intake & Output 11/29/21 11/30/21 12/01/21 12/02/21 23:59 23:59 23:59 23:59 Intake Total 2370 2185 1630 1090 Output Total 8 500 Balance 2370 2177 1130 1090 Meds/Results Medications: Active Medications Generic Name Dose Route Start Last Admin Trade Name Freq PRN Reason Stop Dose Admin Hydrocodone Bitart/Acetaminophen 1 tab 11/27/21 15:44 12/01/21 20:05 Hydrocodone/Acetaminophen (*Crx) 5-325 Mg Tablet PO 1 tab Q6H PRN Administration Pain Ra
[2021-12-02 16:00] LABS: Hematocrit 28.3 % (37.0-47.0); Hemoglobin 8.7 g/dL (12.0-15.0)
[2021-12-02] MEDS: traZODone HCL 50 MG TABLET PO (21:52)
[2021-12-02] MEDS: HYDROcodone/acetaminophen (*CRX) 5-325 MG TABLET 1 TAB PO (21:52)
[2021-12-02] MEDS: GABAPENTIN 300 MG CAPSULE 900 MG PO (21:52)
[2021-12-02] MEDS: LEFLUNOMIDE 10 MG TABLET PO (21:52)
[2021-12-02 21:53] LABS: Hematocrit 22.9 % (37.0-47.0); Hemoglobin 7.1 g/dL (12.0-15.0)
[2021-12-02] MEDS: LACTATED RINGERS 500 ML 999 ML IV CONT (23:11)
--- NOTE | 2021-12-02 23:18 | PC.NURSE ---
called into pt room, pt on cammode. pt diaphoretic and dry heaving and complains of dizziness and feels like she may pass out. pt had a large bloody bowel movement. Rapid response called
--- NOTE | 2021-12-02 23:19 | PC.NURSE ---
orders for blood received and 500LR fluid bolus. pt symptoms have resolved and back in bed
[2021-12-03] VITALS (29 sets, daily range): BP systolic 70–166; BP diastolic 38–83; PULSE 83–110; RESP 12–20; TEMP 36.1–36.9; O2SAT 95–100
[2021-12-03] MEDS: traMADol HCL (*CRX) 25 MG TABLET PO (05:13)
--- NOTE | 2021-12-03 05:29 | PC.NURSE ---
notified Nina Quiles with phlebotomy that blood is finished and AM labs can be drawn at 0630
[2021-12-03 06:51] LABS: Basophils Percent Auto 0.8 % (0.2-1.2); Eosinophils Percent Auto 0.4 % (0-4.4); Hematocrit 25.7 % (37.0-47.0); Hemoglobin 8.4 g/dL (12.0-15.0); Immature Granulocyte Absolute 0.02 K/mm3 (0.00-0.031); Immature Granulocyte Percent A 0.4 % (0-0.5); Lymphocytes Percent Auto 18.9 % (18.3-44.2); Mean Corpuscular HGB Conc 32.7 g/dl (32-36); Mean Corpuscular Volume 85.7 fl (80-100); Mean Platelet Volume 10.2 fl (7.4-10.4); Monocytes Absolute Auto 0.7 K/mm3 (0.1-0.6); Monocytes Percent Auto 13.2 % (2.6-8.5); Neutrophils Absolute Auto 3.5 K/mm3 (1.3-6.7); Neutrophils Percent Auto 66.3 % (45.5-73.1); Platelet Count Result 201 k/mm3 (150-375); Red Cell Distribution Width 15.9 % (11.5-14.5); White Blood Count 5.3 K/mm3 (4.5-10.0)
[2021-12-03 07:01] LABS: Alanine Aminotransferase 9 U/L (4-35); Albumin Level 2.3 g/dL (3.5-5.1); Alkaline Phosphatase 41 U/L (38-126); Anion Gap 3 mmol/L (8-16); Aspartate Amino Transferase 18 U/L (14-36); Bilirubin,Total 0.6 mg/dL (0.2-1.3); Blood Urea Nitrogen 36 mg/dL (7-17); Calcium 7.3 mg/dL (8.4-10.2); Carbon Dioxide 22 mmol/L (22-30); Chloride 111 mmol/L (98-107); Estimated CRCL calculation 87 ml/min; Estimated Glomerular Filt Rate > 60; Glucose 96 mg/dL (65-110); Potassium 4.1 mmol/L (3.4-5.0); Sodium 136 mmol/L (137-145)
[2021-12-03 08:19] LABS: INR 1.2; Partial Thromboplastin Time 28.5 SECONDS (22.3-36.8); Prothrombin Time 14.5 Seconds (11.1-14.7)
[2021-12-03] MEDS: FOLIC ACID 1 MG TABLET PO (09:07)
[2021-12-03] MEDS: DULoxetine HCL 60 MG CAPSULE.DR PO (09:07)
[2021-12-03] MEDS: PANTOPRAZOLE SODIUM IV 40 MG VIAL IV PUSH (09:07)
--- NOTE | 2021-12-03 11:10 | PM.PNGS ---
Progress Note: A&P Assessment and Plan (1) Acute GI bleeding: Code(s): K92.2 - Gastrointestinal hemorrhage, unspecified Status: Acute Assessment and Plan: Patient continues to bleed. She has now received 10 untis PRBC this admission. Will give FFP and platelets today to hopefully help replace clotting factors in effort to get bleeding to subside. Repeat GI bleeding scan ordered Stat If bleeding continues, will need to seriously consider surgical resection. Cannot verify source but diverticular suggested by colonoscopy. Would have to either perform sigmoid resection or total colectomy. Will place on clear liquids in case surgery has to be performed. (2) Acute blood loss anemia: Code(s): D62 - Acute posthemorrhagic anemia Status: Acute (3) BAMBI (obstructive sleep apnea): Code(s): G47.33 - Obstructive sleep apnea (adult) (pediatric) Status: Acute (4) Bariatric surgery status: Code(s): Z98.84 - Bariatric surgery status Status: Acute (5) Easy bruising: Code(s): R23.8 - Other skin changes Status: Acute Subjective Subjective Date/Time Seen: 12/03/21 11:10 Interval history: Patient had more hematochezia over night. Also became lightheaded and diaphoretic for brief period of time. Feels well now. No abdominal pain. Exam GI: Inspection: non-distended GI Palp: No Tenderness to palpation present (GI), No Guarding due to palpation present (GI) and No Rebound tenderness present Auscultation: normal bowel sounds Objective Data Vital Signs Vital Signs: Vital Signs - 24 hr 12/02/21 11:41 12/02/21 14:10 12/02/21 18:15 Temperature 36.8 C 36.6 C 36.6 C Pulse Rate 82 80 70 Respiratory Rate 14 20 14 Blood Pressure 145/66 H 149/64 H 149/65 H Pulse Oximetry 100 100 99 12/02/21 19:57 12/02/21 23:11 12/02/21 23:20 Temperature 36.6 C Pulse Rate 98 129 H 129 H Respiratory Rate 20 20 Blood Pressure 153/46 H 98/67 L 98/67 L Pulse Oximetry 100 100 12/02/21 23:39 12/02/21 23:40 12/02/21 23:55 Temperature 36.4 C L 36.4 C L 36.2 C L Pulse Rate 93 93 87 Respiratory Rate 20 20 20 Blood Pressure 98/67 L 98/67 L 105/47 L Pulse Oximetry 96 99 100 12/03/21 00:07 12/03/21 00:55 12/03/21 01:55 Temperature 36.1 C L 36.8 C Pulse Rate 87 94 Respiratory Rate 20 20 Blood Pressure 104/50 L 98/53 L Pulse Oximetry 98 99 95 12/03/21 02:15 12/03/21 02:35 12/03/21 02:50 Temperature 36.6 C 36.6 C 36.1 C L Pulse Rate 88 88 88 Respiratory Rate 20 20 18 Blood Pressure 98/50 L 98/50 L 102/48 L Pulse Oximetry 97 97 99 12/03/21 03:49 12/03/21 03:50 12/03/21 04:49 Temperature 36.1 C L 36.1 C L 36.4 C L Pulse Rate 88 88 88 Respiratory Rate 18 18 18 Blood Pressure 102/48 L 102/48 L 100/51 L Pulse Oximetry 99 99 100 12/03/21 05:20 12/03/21 09:08 12/03/21 09:10 Temperature 36.8 C 36.4 C Pulse Rate 83 92 92 Respiratory Rate 18 18 18 Blood Pressure 106/46 L 101/58 L Pulse Oximetry 99 98 98 12/03/21 09:57 Temperature 36.5 C Pulse Rate 92 Respiratory Rate 14 Blood Pressure 107/52 L Pulse Oximetry 100 Intake/Output Intake/Output: Intake & Output 11/30/21 12/01/21 12/02/21 12/03/21 23:59 23:59 23:59 23:59 Intake Total 2185 1630 2430 1540 Output Total 8 500 250 Balance 2177 1130 2430 1290 Meds/Results Medications: Active Medications Generic Name Dose Route Start Last Admin Trade Name Freq PRN Reason Stop Dose Admin Hydrocodone Bitart/Acetaminophen 1 tab 11/27/21 15:44 12/02/21 21:52 Hydrocodone/Acetaminophen (*Crx) 5-325 Mg Tablet PO 1 tab Q6H PRN Administration Pain Rated 7-10 Duloxetine HCl 60 mg 11/29/21 17:28 12/03/21 09:07 Duloxetine Hcl 60 Mg Capsule.Dr PO 60 mg DAILY OCTAVIA Administration Folic Acid 1 mg 11/30/21 09:00 12/03/21 09:07 Folic Acid 1 Mg Tablet PO 1 mg DAILY OCTAVIA Administration Gabapentin 900 mg 11/29/21 21:00 12/02/21 21:52 Gabapentin 300 Mg Capsule PO 900 mg
--- NOTE | 2021-12-03 12:09 | P.PNIM_ITS ---
Progress Note: A&P Assessment and Plan (1) Acute GI bleeding: Code(s): K92.2 - Gastrointestinal hemorrhage, unspecified Status: Acute Assessment and Plan: Presented with bloody stools for 4 days with associated epigastric pain * Patient does take Celebrex daily. History and symptoms concerning for peptic ulcer * Appreciate gastroenterology consultation * EGD and colonoscopy did not reveal an acute bleed * Patient's hemoglobin dropped on 12/03/2019 2-6.8 and therefore she required 2 units of packed red blood cell transfusion. Patient has received multiple units of packed red blood cells. * Nuclear med GI scan performed, no active bleeding visualized * Patient may benefit from a capsule study or repeat colonoscopy (other considerations as repeat diverticular bleed or AVM)-defer to GI or General surgery * Patient experienced a rapid response during the night, requiring 2 units packed red blood cells. She became diaphoretic and dizzy. Hemoglobin decreased to 7 * General surgery was consulted for further evaluation * Continue Protonix b.i.d. * Celebrex discontinued * (2) Anemia: Qualifiers: Anemia type: unspecified type Qualified Code(s): D64.9 - Anemia, unspecified Code(s): D64.9 - Anemia, unspecified Status: Acute Assessment and Plan: Found to be markedly anemic on presentation with hemoglobin down to 5.5 * Secondary to GI bleed as above. Her baseline is unknown. Will attempt to obtain records from her PCP to determine baseline * She has been transfused multiple units of PRBC * Monitor H&H q.6 hours * Hemoglobin continues to downtrend. Continue to monitor (3) BAMBI (obstructive sleep apnea): Code(s): G47.33 - Obstructive sleep apnea (adult) (pediatric) Status: Acute Assessment and Plan: Continue with BiPAP (4) Ankylosing spondylitis: Code(s): M45.9 - Ankylosing spondylitis of unspecified sites in spine Status: Acute Assessment and Plan: Established with quartz cutter, Dr. Graham at [facility] * Receives golimumab infusions every 2 weeks and takes methotrexate weekly * Leflunomide 10 mg p.o. daily on hold while NPO. Resume when clinically appropriate * Supportive care. Analgesics available as needed (5) Abnormal TSH: Code(s): R79.89 - Other specified abnormal findings of blood chemistry Status: Acute Assessment and Plan: TSH is slightly decreased but T4 and T3 are normal * Will need repeat TSH with reflex in 4-6 weeks (6) Bariatric surgery status: Code(s): Z98.84 - Bariatric surgery status Status: Acute Assessment and Plan: Patient is s/p Leo-en-Y gastric bypass in 2014 (7) Epistaxis: Code(s): R04.0 - Epistaxis Status: Acute Assessment and Plan: Nosebleed last night * Self-limited, resolved * Continue to monitor H&H * --resolved Subjective Date/time seen: 12/03/21 12:09 Patient is alert and oriented x4. She does appear a bit anxious and mildly depressed today did consider completing. Patient did have a significant event during the night. Rapid response was called. Patient was able to get to the commode and while she was sitting on the commode she experienced diaphoresis and dizziness. She had a large bowel movement consistent with a significant amount of blood. The patient was able to call nursing staff who rushed to the room and reported a rapid response. The patient was able to be transferred back to the bed. Patient was mildly hypotensive. H
--- NOTE | 2021-12-03 12:09 | PM.IMPN ---
Progress Note: A&P Assessment and Plan (1) Acute GI bleeding: Code(s): K92.2 - Gastrointestinal hemorrhage, unspecified Status: Acute Assessment and Plan: Presented with bloody stools for 4 days with associated epigastric pain Patient does take Celebrex daily. History and symptoms concerning for peptic ulcer Appreciate gastroenterology consultation EGD and colonoscopy did not reveal an acute bleed Patient's hemoglobin dropped on 12/03/2019 2-6.8 and therefore she required 2 units of packed red blood cell transfusion. Patient has received multiple units of packed red blood cells. Nuclear med GI scan performed, no active bleeding visualized Patient may benefit from a capsule study or repeat colonoscopy (other considerations as repeat diverticular bleed or AVM)-defer to GI or General surgery Patient experienced a rapid response during the night, requiring 2 units packed red blood cells. She became diaphoretic and dizzy. Hemoglobin decreased to 7 General surgery was consulted for further evaluation Continue Protonix b.i.d. Celebrex discontinued (2) Anemia: Qualifiers: Anemia type: unspecified type Qualified Code(s): D64.9 - Anemia, unspecified Code(s): D64.9 - Anemia, unspecified Status: Acute Assessment and Plan: Found to be markedly anemic on presentation with hemoglobin down to 5.5 Secondary to GI bleed as above. Her baseline is unknown. Will attempt to obtain records from her PCP to determine baseline She has been transfused multiple units of PRBC Monitor H&H q.6 hours Hemoglobin continues to downtrend. Continue to monitor (3) BAMBI (obstructive sleep apnea): Code(s): G47.33 - Obstructive sleep apnea (adult) (pediatric) Status: Acute Assessment and Plan: Continue with BiPAP (4) Ankylosing spondylitis: Code(s): M45.9 - Ankylosing spondylitis of unspecified sites in spine Status: Acute Assessment and Plan: Established with per diem physical therapist, Dr. Graham at [facility] Receives golimumab infusions every 2 weeks and takes methotrexate weekly Leflunomide 10 mg p.o. daily on hold while NPO. Resume when clinically appropriate Supportive care. Analgesics available as needed (5) Abnormal TSH: Code(s): R79.89 - Other specified abnormal findings of blood chemistry Status: Acute Assessment and Plan: TSH is slightly decreased but T4 and T3 are normal Will need repeat TSH with reflex in 4-6 weeks (6) Bariatric surgery status: Code(s): Z98.84 - Bariatric surgery status Status: Acute Assessment and Plan: Patient is s/p Leo-en-Y gastric bypass in 2014 (7) Epistaxis: Code(s): R04.0 - Epistaxis Status: Acute Assessment and Plan: Nosebleed last night Self-limited, resolved Continue to monitor H&H --resolved Subjective Date/time seen: 12/03/21 12:09 Patient is alert and oriented x4. She does appear a bit anxious and mildly depressed today did consider completing. Patient did have a significant event during the night. Rapid response was called. Patient was able to get to the commode and while she was sitting on the commode she experienced diaphoresis and dizziness. She had a large bowel movement consistent with a significant amount of blood. The patient was able to call nursing staff who rushed to the room and reported a rapid response. The patient was able to be transferred back to the bed. Patient was mildly hypotensive. Hemoglobin dropped to 7, she was transfused 2 units packed red blood cells during the night. GI was called and notified of the patient's rapid response. He will follow in consultation today. Patient appears without acute distress this morning. Continue to monitor hemoglobin trend. Defer the to general surgeon and GI. Patient was made NPO Review of Systems Review of Systems: All systems reviewed & are unremarkable except as noted
[2021-12-03 12:26] LABS: Hematocrit 25.8 % (37.0-47.0); Hemoglobin 8.2 g/dL (12.0-15.0)
--- NOTE | 2021-12-03 13:03 | WPDGIPROGNO ---
Progress Note: A&P Assessment and Plan (1) Acute blood loss anemia: Code(s): D62 - Acute posthemorrhagic anemia Status: Acute Assessment and Plan: recurrent hematochezia, last episode last night- pending another GIB scan on iv protonix appreciate surgery recommendations, already received 10 units prbc and will get platelets (coags and platelet wnl) may require surgical intervention if persistent bleeding, wonder if could have been diverticular bleeding (colonoscopy found diverticulosis with old blood), another possibility if bleeding from excluded stomach or duodenum (she is post gastric bypass) (2) Diverticular hemorrhage: Code(s): K57.31 - Diverticulosis of large intestine without perforation or abscess with bleeding Status: Acute Assessment and Plan: most likely cause of gib continue to monitor (3) Rectal bleeding: Code(s): K62.5 - Hemorrhage of anus and rectum Status: Acute (4) Acute LUQ pain: Code(s): R10.12 - Left upper quadrant pain Status: Acute Assessment and Plan: resolved (5) Bariatric surgery status: Code(s): Z98.84 - Bariatric surgery status Status: Acute (6) Ankylosing spondylitis: Code(s): M45.9 - Ankylosing spondylitis of unspecified sites in spine Status: Acute Subjective Date/time seen: 12/03/21 13:03 Interval history: she had another episode of hematochezia and was vasovagal, required 2 more units of blood transfusion last night. Now she is feeling ok. Review of Systems Review of Systems: All systems reviewed & are unremarkable except as noted in HPI and below Exam Const: General: comfortable and no acute distress HENMT: General nose exam: Normal nares present Eyes: General: appearance normal, both eyes and all related structures Neck: Neck: no JVD Resp: Auscultation: clear to auscultation bilaterally Cardio: Rate: regular rate Rhythm: regular rhythm GI: Inspection: non-distended GI Palp: Yes Soft to palpation Skin: General skin exam: normal color Neuro: General: gait normal Speech: normal speech Extrem: General: normal to inspection Psych: Mental Status: mental status grossly normal Objective Data Vital Signs Vital Signs: Vital Signs - 24 hr 12/02/21 14:10 12/02/21 18:15 12/02/21 19:57 Temperature 97.9 F 97.9 F 97.9 F Pulse Rate 80 70 98 Respiratory Rate 20 14 20 Blood Pressure 149/64 H 149/65 H 153/46 H Pulse Oximetry 100 99 100 12/02/21 23:11 12/02/21 23:20 12/02/21 23:39 Temperature 97.5 F L Pulse Rate 129 H 129 H 93 Respiratory Rate 20 20 Blood Pressure 98/67 L 98/67 L 98/67 L Pulse Oximetry 100 96 12/02/21 23:40 12/02/21 23:55 12/03/21 00:07 Temperature 97.5 F L 97.2 F L Pulse Rate 93 87 Respiratory Rate 20 20 Blood Pressure 98/67 L 105/47 L Pulse Oximetry 99 100 98 12/03/21 00:55 12/03/21 01:55 12/03/21 02:15 Temperature 96.9 F L 98.2 F 97.9 F Pulse Rate 87 94 88 Respiratory Rate 20 20 20 Blood Pressure 104/50 L 98/53 L 98/50 L Pulse Oximetry 99 95 97 12/03/21 02:35 12/03/21 02:50 12/03/21 03:49 Temperature 97.9 F 96.9 F L 96.9 F L Pulse Rate 88 88 88 Respiratory Rate 20 18 18 Blood Pressure 98/50 L 102/48 L 102/48 L Pulse Oximetry 97 99 99 12/03/21 03:50 12/03/21 04:49 12/03/21 05:20 Temperature 96.9 F L 97.5 F L 98.2 F Pulse Rate 88 88 83 Respiratory Rate 18 18 18 Blood Pressure 102/48 L 100/51 L 106/46 L Pulse Oximetry 99 100 99 12/03/21 09:08 12/03/21 09:10 12/03/21 09:57 Temperature 97.6 F 97.7 F Pulse Rate 92 92 92 Respiratory Rate 18 18 14 Blood Pressure 101/58 L 107/52 L Pulse Oximetry 98 98 100 Intake/Output Intake/Output: Intake & Output 11/30/21 12/01/21 12/02/21 12/03/21 23:59 23:59 23:59 23:59 Intake Total 2185 1630 2430 1540 Output Total 8 500 250 Balance 2177 1130 2430 1290 Meds/Results Medications: Active Medications Generic Name Dose Route Start Last Admin Trade Name Darryl
--- NOTE | 2021-12-03 19:52 | PCRCNOTE ---
Discussed using home Bipap. Patient states she does not need any assistance from RT for donning and removing mask. Refuses need for sterile water for humidification.
[2021-12-03] MEDS: LEFLUNOMIDE 10 MG TABLET PO (20:42)
[2021-12-03] MEDS: HYDROcodone/acetaminophen (*CRX) 5-325 MG TABLET 1 TAB PO (20:42)
[2021-12-03] MEDS: GABAPENTIN 300 MG CAPSULE 900 MG PO (20:42)
[2021-12-03] MEDS: traZODone HCL 50 MG TABLET PO (20:42)
--- NOTE | 2021-12-03 20:50 | P.PNCROSS_ITS ---
Event Note Event Note Event Note: I received a call from the patient's nurse, Ale, at 20:50 with concerns t hat another H&H had not been ordered post transfusion earlier in the day and her blood pressure was trending down to 100 systolic. Chart reviewed. Patient received 2 units packed red blood cells, FFP, and platelets since 23:40 last evening. H&H came back at 6.3 and 19.6% respectively and 2 units of PRBCs were ordered. About that same time the patient once again passed a large stool clots measuring approximately 1800 cc. Decision was made to transfer the patient to the ICU. Case was discussed with Dr. Mckenzie (fork truck driver) and Dr. Eason (attending hospitalist). Patient was seen and evaluated in ICU. She was pale and complaining of dizziness. Hands and feet are cool. Peripheral pulses intact. Blood pressure was 70/40 and her 1st unit of blood was hanging. She is not having any pain and specifically denies chest pain, abdominal pain, and shortness of breath. No vomiting. DIC panel ordered and looked good (PT 14.8, INR 1.2, PTT 28.7, fibrinogen 317, platelets 255, magnesium 1.9, calcium 7.4). Tagged red blood cell scan from this afternoon showed active GI bleed with activity throughout the colon beginning at the cecum and also likely with some distal small bowel in the right lower quadrant which likely represents the site of origin. Dr. Eason spoke with the surgeon and pushcart peddler who have been following the patient with updates. He also spoke with [facility] transfer as she may benefit from transfer to [facility] where she had her bariatric surgery 7 years ago. They also have IR who could evaluate her for potential embolization. Dr. Jarquin will keep anesthesia on alert for possible emergency surgical intervention. A total of 30 minutes critical care time was spent in attention of this patient including multiple discussions with the patient's nurse, specialists, a complete chart review, assessment of the patient, discussions with the patient regarding findings/plan/treatment, ordering of and reviewing new lab work. This was exclusive of separately billable procedures.
[2021-12-03 21:52] LABS: Hemoglobin 6.3 g/dL (12.0-15.0)
[2021-12-03 21:53] LABS: Hematocrit 19.6 % (37.0-47.0)
--- NOTE | 2021-12-03 22:24 | PC.NURSE ---
pt symptoms have resolved at this time. Reports no nausea/dizziness or being lightheaded.
[2021-12-03 22:34] LABS: Mean Platelet Volume 10.1 fl (7.4-10.4); Platelet Count Result 255 k/mm3 (150-375)
[2021-12-03 22:46] LABS: Calcium 7.4 mg/dL (8.4-10.2)
[2021-12-03 22:47] LABS: INR 1.2; Magnesium 1.9 mg/dL (1.6-2.3); Partial Thromboplastin Time 28.7 SECONDS (22.3-36.8); Prothrombin Time 14.8 Seconds (11.1-14.7)
[2021-12-03 22:48] LABS: Fibrinogen 317 mg/dl (215-510)
[2021-12-03] MEDS: SODIUM CHLORIDE 0.9% IV 250 ML 30 ML IV CONT (23:00)
[2021-12-03] MEDS: SODIUM CHLORIDE 0.9% IV 500 ML 999 ML IV CONT (23:30)
--- NOTE | 2021-12-03 23:50 | PC.NURSE ---
pt transferd from rm 246 pt placed on monitor packed cells infusing via perpheral iv. Pt a&O x 3 Verb no complaints other than feeling tired. Pt states dizzyness has subsided.
--- NOTE | 2021-12-03 23:55 | WPDPROCEDUR ---
Procedures Central Line Placement Right Femoral: Central Line Date: 12/03/21 Central Line Time: 23:55 Discussed w/ the patient/family/POA,the placement of a central venous catheter, including its clinical necessity/indication & associated potential risks, benifits and alternatives.: Yes The patient/family/POA understand(s) and acknowledge(s) the need to proceed with central venous catheter insertion as an important element of the patient's clinical management.: Yes Time Out Performed: Yes Patient Position: supine Patient placed on monitor/pulse ox: Yes Provider Prep: mask, sterile gown, sterile gloves, Max. sterile barrier precautions, cap and hand hygiene with conventional soap/water or alcohol based hand rub Central line prep: 2% Chlorhexidine scrub Local anesthesia used: lidocaine 1% Amount of anesthesia used (ml): 5 Sterile US Technique with sterile gel/sterile probe covers: Yes Central line lumen inserted: triple Macanese: 7 Length (cm): 20 Post Procedure: sutured in place, good blood return, all ports aspirated, flushed, capped, transparent dressing, securement product and aseptic technique maintained throughout procedure Post procedure x-ray: other (n/a with femoral placement) Patient tolerated procedure: well Complications: none
--- NOTE | 2021-12-03 23:56 | PM.IMPN ---
Subjective Date/time seen: 12/03/21 23:56 Interval history: Patient is having bleeding per rectum associated with hypotension I spoke with the surgeon I spoke with Gastroenterology I spoke with [facility] transfer center Option are very complicated for the patient Possible surgical intervention tonight if resuscitation effort is not successful Patient may benefit from interventional radiology evaluation Pending call back from [facility] transfer center IV fluid resuscitation blood transfusion central line placement transferred to ICU medical accountant aware The surgeon will keep anesthesia on alert for possible emergency a surgical intervention Objective Data Vital Signs Vital Signs: Vital Signs - 24 hr 12/03/21 00:07 12/03/21 00:55 12/03/21 01:55 Temperature 96.9 F L 98.2 F Pulse Rate 87 94 Respiratory Rate 20 20 Blood Pressure 104/50 L 98/53 L Pulse Oximetry 98 99 95 12/03/21 02:15 12/03/21 02:35 12/03/21 02:50 Temperature 97.9 F 97.9 F 96.9 F L Pulse Rate 88 88 88 Respiratory Rate 20 20 18 Blood Pressure 98/50 L 98/50 L 102/48 L Pulse Oximetry 97 97 99 12/03/21 03:49 12/03/21 03:50 12/03/21 04:49 Temperature 96.9 F L 96.9 F L 97.5 F L Pulse Rate 88 88 88 Respiratory Rate 18 18 18 Blood Pressure 102/48 L 102/48 L 100/51 L Pulse Oximetry 99 99 100 12/03/21 05:20 12/03/21 09:08 12/03/21 09:10 Temperature 98.2 F 97.6 F Pulse Rate 83 92 92 Respiratory Rate 18 18 18 Blood Pressure 106/46 L 101/58 L Pulse Oximetry 99 98 98 12/03/21 09:57 12/03/21 13:45 12/03/21 13:56 Temperature 97.7 F 97.2 F L 97.1 F L Pulse Rate 92 87 89 Respiratory Rate 14 16 12 Blood Pressure 107/52 L 120/46 L 130/67 Pulse Oximetry 100 99 99 12/03/21 14:00 12/03/21 15:00 12/03/21 16:10 Temperature 97.4 F L 98.0 F 98.1 F Pulse Rate 86 98 85 Respiratory Rate 16 16 16 Blood Pressure 115/46 L 134/83 133/67 Pulse Oximetry 97 99 98 12/03/21 17:30 12/03/21 17:47 12/03/21 17:50 Temperature 97.4 F L 97.4 F L 98.2 F Pulse Rate 100 100 88 Respiratory Rate 16 18 16 Blood Pressure 166/71 H 166/71 H 132/57 L Pulse Oximetry 100 100 100 12/03/21 18:46 12/03/21 19:55 12/03/21 21:52 Temperature 98.4 F 97.6 F 97.8 F Pulse Rate 89 100 100 Respiratory Rate 16 16 16 Blood Pressure 145/74 H 136/78 132/40 L Pulse Oximetry 99 100 100 12/03/21 22:09 12/03/21 22:14 12/03/21 22:17 Temperature 97.8 F 97.8 F Pulse Rate 110 H 110 H Respiratory Rate 16 16 Blood Pressure 100/54 L 100/54 L 100/54 L Pulse Oximetry 100 100 12/03/21 23:00 Temperature 97.6 F Pulse Rate 92 Respiratory Rate 16 Blood Pressure 90/38 L Pulse Oximetry 99 Intake/Output Intake/Output: Intake & Output 11/30/21 12/01/21 12/02/21 12/03/21 23:59 23:59 23:59 23:59 Intake Total 2185 1630 2430 2729 Output Total 8 500 250 Balance 2177 1130 2430 2479 Meds/Results Medications: Active Medications Generic Name Dose Route Start Last Admin Trade Name Freq PRN Reason Stop Dose Admin Acetaminophen 650 mg 12/03/21 14:24 Acetaminophen 325 Mg Tablet PO Q6H PRN Mild Pain (1-3) or Fever Hydrocodone Bitart/Acetaminophen 1 tab 11/27/21 15:44 12/03/21 20:42 Hydrocodone/Acetaminophen (*Crx) 5-325 Mg Tablet PO 1 tab Q6H PRN Administration Pain Rated 7-10 Duloxetine HCl 60 mg 11/29/21 17:28 12/03/21 09:07 Duloxetine Hcl 60 Mg Capsule.Dr PO 60 mg DAILY OCTAVIA Administration Folic Acid 1 mg 11/30/21 09:00 12/03/21 09:07 Folic Acid 1 Mg Tablet PO 1 mg DAILY OCTAVIA Administration Gabapentin 900 mg 11/29/21 21:00 12/03/21 20:42 Gabapentin 300 Mg Capsule PO 900 mg HS OCTAVIA Administration Sodium Chloride 250 mls @ 30 mls/hr 12/03/21 22:07 Normal Saline Iv IV CONT 12/04/21 06:26 .Q8H20M STA Leflunomide 10 mg 11/30/21 21:00 12/03/21 20:42 Leflunomide 10 Mg Tablet PO 10 mg HS OCTAVIA Administration Lorazepam 0.5 mg 11/27/21 15:44 12/02/21 09:23 Lorazepam Inj (*Crx) 2 Mg/Ml Vial IV PUSH 0.5
[2021-12-04] VITALS (16 sets, daily range): BP systolic 73–128; BP diastolic 28–69; PULSE 75–91; RESP 12–24; TEMP 36.1–37; O2SAT 80–100
[2021-12-04 00:25] LABS: Alanine Aminotransferase 11 U/L (4-35); Albumin Level 2.3 g/dL (3.5-5.1); Alkaline Phosphatase 51 U/L (38-126); Anion Gap 4 mmol/L (8-16); Aspartate Amino Transferase 20 U/L (14-36); Bilirubin,Total 0.3 mg/dL (0.2-1.3); Blood Urea Nitrogen 32 mg/dL (7-17); Calcium 7.5 mg/dL (8.4-10.2); Carbon Dioxide 23 mmol/L (22-30); Chloride 110 mmol/L (98-107); Estimated CRCL calculation 87 ml/min; Estimated Glomerular Filt Rate > 60; Glucose 155 mg/dL (65-110); Potassium 3.8 mmol/L (3.4-5.0); Sodium 137 mmol/L (137-145)
[2021-12-04] MEDS: NOREPINEPHRINE 8 MG/D5W 250 ML 8 MG/250 ML BAG 9.38 MG IV CONT (01:45)
[2021-12-04] MEDS: SODIUM CHLORIDE 0.9% IV 1,000 ML 100 ML IV CONT (01:45)
--- NOTE | 2021-12-04 02:50 | PC.NURSE ---
pt transported to [facility] via [facility]. levophed going at 3mcg/min via right femoral central line. Pt verb no complaints eta called to [facility] ICU
--- NOTE | 2021-12-04 07:46 | P.TS_ITS ---
Transfer Discharge Sum: Prov Provider Date of admission: 11/27/21 10:23 Primary care physician: Babar Carrera, MD Admitting clinician: Guzman Eason MD Consults: 11/28/21 Consult to Physician Routine Comment: Spoke to Dr @ 07:36am (,) Consulting Provider: Faraz Guthrie Reason for consultation: GI Bleed Has provider been notified: Yes 12/02/21 Consult to Physician Routine Comment: spoke to office@[id number]([facility]) Consulting Provider: Tim Jarquin call or contact centre manager/MD group to consult: alvagernneka Reason for consultation: recurrent GIB, ? diverticular Has provider been notified: Yes 12/03/21 Consult to Physician Routine Comment: Consulting Provider: Jovita Mckenzie call or contact centre manager/MD group to consult: Dr. Mckenzie Reason for consultation: hemorrhagic shock, GI bleed Has provider been notified: Yes DS: Admitting Diagnosis Discharge Date 12/04/21 Admitting Diagnosis GI Bleed DS: Discharge Diagnosis Discharge Diagnosis (1) Acute GI bleeding: Code(s): K92.2 - Gastrointestinal hemorrhage, unspecified Status: Acute Assessment and Plan: Presented with bloody stools for 4 days with associated epigastric pain * Patient does take Celebrex daily. History and symptoms concerning for peptic ulcer * Appreciate gastroenterology consultation * EGD and colonoscopy did not reveal an acute bleed * Patient's hemoglobin dropped on 12/03/2019 2-6.8 and therefore she required 2 units of packed red blood cell transfusion. Patient has received multiple units of packed red blood cells. * Nuclear med GI scan performed, no active bleeding visualized * Patient may benefit from a capsule study or repeat colonoscopy (other considerations as repeat diverticular bleed or AVM)-defer to GI or General surgery * Patient experienced a rapid response during the night, requiring 2 units packed red blood cells. She became diaphoretic and dizzy. Hemoglobin decreased to 7 * General surgery was consulted for further evaluation * Continue Protonix b.i.d. * Celebrex discontinued * (2) Anemia: Qualifiers: Anemia type: unspecified type Qualified Code(s): D64.9 - Anemia, unspec ified Code(s): D64.9 - Anemia, unspecified Status: Acute Assessment and Plan: Found to be markedly anemic on presentation with hemoglobin down to 5.5 * Secondary to GI bleed as above. Her baseline is unknown. Will attempt to obtain records from her PCP to determine baseline * She has been transfused multiple units of PRBC * Monitor H&H q.6 hours * Hemoglobin continues to downtrend. Continue to monitor (3) BAMBI (obstructive sleep apnea): Code(s): G47.33 - Obstructive sleep apnea (adult) (pediatric) Status: Acute Assessment and Plan: Continue with BiPAP (4) Ankylosing spondylitis: Code(s): M45.9 - Ankylosing spondylitis of unspecified sites in spine Status: Acute Assessment and Plan: Established with glove stitcher, Dr. Graham at [facility] * Receives golimumab infusions every 2 weeks and takes methotrexate weekly * Leflunomide 10 mg p.o. daily on hold while NPO. Resume when clinically appropriate * Supportive care. Analgesics available as needed (5) Abnormal TSH: Code(s): R79.89 - Other specified abnormal findings of blood chemistry Status: Acute Assessment and Plan: TSH is slightly decreased but T4 and T3 are normal
--- NOTE | 2021-12-04 07:46 | PM.TDS ---
Transfer Discharge Sum: Prov Provider Date of admission: 11/27/21 10:23 Primary care physician: Babar Carrera, Admitting clinician: Guzman Eason MD Consults: 11/28/21 Consult to Physician Routine Comment: Spoke to Dr @ 07:36am (,) Consulting Provider: Faraz Guthrie Reason for consultation: GI Bleed Has provider been notified: Yes 12/02/21 Consult to Physician Routine Comment: spoke to office@[id number]([facility]) Consulting Provider: Tim Jarquin medical case manager/MD group to consult: alvagernneka Reason for consultation: recurrent GIB, ? diverticular Has provider been notified: Yes 12/03/21 Consult to Physician Routine Comment: Consulting Provider: Jovita Mckenzie medical case manager/MD group to consult: Dr. Mckenzie Reason for consultation: hemorrhagic shock, GI bleed Has provider been notified: Yes DS: Admitting Diagnosis Discharge Date 12/04/21 Admitting Diagnosis GI Bleed DS: Discharge Diagnosis Discharge Diagnosis (1) Acute GI bleeding: Code(s): K92.2 - Gastrointestinal hemorrhage, unspecified Status: Acute Assessment and Plan: Presented with bloody stools for 4 days with associated epigastric pain Patient does take Celebrex daily. History and symptoms concerning for peptic ulcer Appreciate gastroenterology consultation EGD and colonoscopy did not reveal an acute bleed Patient's hemoglobin dropped on 12/03/2019 2-6.8 and therefore she required 2 units of packed red blood cell transfusion. Patient has received multiple units of packed red blood cells. Nuclear med GI scan performed, no active bleeding visualized Patient may benefit from a capsule study or repeat colonoscopy (other considerations as repeat diverticular bleed or AVM)-defer to GI or General surgery Patient experienced a rapid response during the night, requiring 2 units packed red blood cells. She became diaphoretic and dizzy. Hemoglobin decreased to 7 General surgery was consulted for further evaluation Continue Protonix b.i.d. Celebrex discontinued (2) Anemia: Qualifiers: Anemia type: unspecified type Qualified Code(s): D64.9 - Anemia, unspecified Code(s): D64.9 - Anemia, unspecified Status: Acute Assessment and Plan: Found to be markedly anemic on presentation with hemoglobin down to 5.5 Secondary to GI bleed as above. Her baseline is unknown. Will attempt to obtain records from her PCP to determine baseline She has been transfused multiple units of PRBC Monitor H&H q.6 hours Hemoglobin continues to downtrend. Continue to monitor (3) BAMBI (obstructive sleep apnea): Code(s): G47.33 - Obstructive sleep apnea (adult) (pediatric) Status: Acute Assessment and Plan: Continue with BiPAP (4) Ankylosing spondylitis: Code(s): M45.9 - Ankylosing spondylitis of unspecified sites in spine Status: Acute Assessment and Plan: Established with tire mold engraver, Dr. Graham at [facility] Receives golimumab infusions every 2 weeks and takes methotrexate weekly Leflunomide 10 mg p.o. daily on hold while NPO. Resume when clinically appropriate Supportive care. Analgesics available as needed (5) Abnormal TSH: Code(s): R79.89 - Other specified abnormal findings of blood chemistry Status: Acute Assessment and Plan: TSH is slightly decreased but T4 and T3 are normal Will need repeat TSH with reflex in 4-6 weeks (6) Bariatric surgery status: Code(s): Z98.84 - Bariatric surgery status Status: Acute Assessment and Plan: Patient is s/p Leo-en-Y gastric bypass in 2014 (7) Epistaxis: Code(s): R04.0 - Epistaxis Status: Acute Assessment and Plan: Nosebleed last night Self-limited, resolved Continue to monitor H&H --resolved Transfer Discharge Sum: Med Medications Active and Home Medications: Home Medications celecoxib 200 mg P
== END 2021-12-04 02:50 | disposition short-term general hospital (02) | DRG 378 ==
LOC: ANHED 10:45 → ANH2MED 12:18 → ANHICU 12-04 03:15 → ANH2MED 12-05 17:26 → ANHICU 12-05 17:26
PROVIDERS: Internal Medicine; Internal Medicine Gastroenterology; Nurse Practitioner; Nurse Practitioner Family; Physician Assistant; Surgery; Admitting Provider Internal Medicine; Emergency Provider Emergency Medicine; PCP Internal Medicine; Visit Provider Internal Medicine
PROC: 0DJ08ZZ Inspection of Upper Intestinal Tract, Via Natural or Artificial Opening Endoscopic (ICD-10-PCS; CPT 43235; principal; 2021-11-29 12:15)
DX: K57.31 Diverticulosis of large intestine without perforation or abscess with bleeding (principal); D62 Acute posthemorrhagic anemia; Z98.84 Bariatric surgery status; Z87.891 Personal history of nicotine dependence; R11.2 Nausea with vomiting, unspecified; Z82.49 Family history of ischemic heart disease and other diseases of the circulatory system; Z82.3 Family history of stroke; Z79.899 Other long term (current) drug therapy; G47.33 Obstructive sleep apnea (adult) (pediatric); M45.9 Ankylosing spondylitis of unspecified sites in spine; R79.89 Other specified abnormal findings of blood chemistry; R10.12 Left upper quadrant pain; R04.0 Epistaxis; R23.8 Other skin changes; I95.9 Hypotension, unspecified
CPT/HCPCS: 36415; 36430; 74177; 78278; 80048; 80053; 81001; 82248; 82274; 82310; 82607; 82746; 83540; 83550; 83690; 83735; 84439; 84443; 84466; 84480; 85014; 85018; 85025; 85027; 85049; 85384; 85610; 85730; 86850; 86900; 86901; 86920; 87086; 93971; 96360; 99285; A9270; A9560; C9113; J0131; J2060; J2270; J2405; J2704; J7030; J7040; J7050; J7120; P9016; P9017; P9034; Q9967

== ENCOUNTER 2022-02-19 10:43 | Inpatient (IN) | payer BC, SELFPAY ==
[2022-02-19] VITALS (9 sets, daily range): BP systolic 117–144; BP diastolic 59–104; PULSE 74–121; RESP 16–22; TEMP 35.9–36.6; O2SAT 94–100; BMI 40.2
--- NOTE | ~2022-02-19 | CT_ITS ---
EXAMINATION: CT abdomen pelvis w con DATE: 02/19/2022 13:11 INDICATION: Right lower quadrant abdominal pain and swelling TECHNIQUE: Computed tomography (CT) of the abdomen and pelvis was performed with 100 mL Omnipaque-300 intravenous contrast. Automated exposure control and iterative reconstruction technique were employe d. The dose-length product was 1602.49 mGy-cm. COMPARISON: 11/27/2021 FINDINGS: Mild elevation of the left hemidiaphragm. Lung bases are clear. Heart size is normal. Mild scattered atherosclerotic calcification. No pericardial or pleural effusion. Postoperative change of prior Leo -en-Y gastric bypass procedure. Pancreas, spleen and bilateral adrenal glands are normal. 1.4 cm cyst in the left hepatic lobe. Gallbladder is not visualized and likely surgically absent. Multiple bilat eral renal cysts measuring up to 7.4 cm on the left and 6.1 cm on the right suggesting polycystic kid max disease. There are few scattered colonic diverticula without adjacent from 3 change to suggest di verticulitis. Small bowel and appendix are normal. Bilateral adnexa and the visualized portions of th e bladder and anteverted uterus are unremarkable with portions of the bladder and uterus obscured by dense metallic streak artifact extending across the central deep pelvis. No free intraperitoneal gas or fluid. No pathologically enlarged abdominal or pelvic lymphadenopathy. There are numerous subcutan eous nodules both the left and right sides of the lower abdominal wall likely related to prior subcut aneous injections. There is a 21.8 x 7.2 x 9.7 cm complex loculated fluid collection most likely repr esenting a hematoma in the deep subcutaneous fat at the anterior lower abdominal and pelvic wall. Lay ering hematocrit level in the dependent aspect of the fluid collection along with a few scattered sma ll foci of active contrast extravasation. IMPRESSION: 1. Layering hematocrit levels within a 21.8 x 7.2 x 9.7 cm subcutaneous hematoma at the anterior righ t lower abdominal/pelvic wall with a few small foci of active contrast extravasation. 2. Polycystic kidney disease. Reviewed, dictated and finalized at location A. IMPRESSION: 1. Layering hematocrit levels within a 21.8 x 7.2 x 9.7 cm subcutaneous hematom a at the anterior right lower abdominal/pelvic wall with a few small foci of ac tive contrast extravasation. 2. Polycystic kidney disease.
--- NOTE | ~2022-02-19 | US_ITS ---
EXAMINATION: US venous doppler UE LT DATE: 02/20/2022 09:13 INDICATION: Left upper extremity venous thrombosis TECHNIQUE: Grayscale images without and with compression and Doppler images of the left upper extremi ty veins were obtained. COMPARISON: 12/03/2021 FINDINGS: There is persistent occlusive thrombus in the left cephalic vein at the level of the elbow. The more downstream left cephalic vein at the upper arm tenderness small but compressible. The left internal j ugular vein, subclavian vein, axillary vein, brachial vein, basilic vein, radial vein, and ulnar vein are patent. IMPRESSION: 1. 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 Reviewed, dictated and finalized at location B. IMPRESSION: 1. Persistent chronic occlusive thrombosis of the left cephalic vein at the lev el of the elbow.
[2022-02-19 11:06] LABS: Basophils Absolute Auto 0.1 K/mm3 (0.0-0.1); Basophils Percent Auto 1.1 % (0.2-1.2); Eosinophils Absolute Auto 0.1 K/mm3 (0-0.3); Eosinophils Percent Auto 1.4 % (0-4.4); Hematocrit 38.1 % (37.0-47.0); Hemoglobin 11.1 g/dL (12.0-15.0); Immature Granulocyte Absolute 0.02 K/mm3 (0.00-0.031); Immature Granulocyte Percent A 0.3 % (0-0.5); Lymphocytes Percent Auto 11.2 % (18.3-44.2); Mean Corpuscular HGB Conc 29.1 g/dl (32-36); Mean Corpuscular Hemoglobin 27.3 pg (26-34); Mean Corpuscular Volume 93.6 fl (80-100); Mean Platelet Volume 10.9 fl (7.4-10.4); Monocytes Absolute Auto 0.4 K/mm3 (0.1-0.6); Monocytes Percent Auto 5.6 % (2.6-8.5); Neutrophils Percent Auto 80.4 % (45.5-73.1); Platelet Count Result 270 k/mm3 (150-375); Red Blood Count 4.07 M/mm3 (4.2-5.4); Red Cell Distribution Width 17.4 % (11.5-14.5); White Blood Count 6.3 K/mm3 (4.5-10.0)
[2022-02-19 11:15] LABS: Alanine Aminotransferase 16 U/L (6-35); Albumin Level 3.8 g/dL (3.5-5.1); Alkaline Phosphatase 82 U/L (38-126); Anion Gap 7 mmol/L (8-16); Aspartate Amino Transferase 23 U/L (14-36); Bilirubin,Total 0.3 mg/dL (0.2-1.3); Blood Urea Nitrogen 25 mg/dL (7-17); Calcium 8.8 mg/dL (8.4-10.2); Carbon Dioxide 24 mmol/L (22-30); Chloride 109 mmol/L (98-107); Estimated CRCL calculation 73 ml/min; Estimated Glomerular Filt Rate 57; Glucose 145 mg/dL (65-110); Lipase 46 U/L (23-300); Sodium 140 mmol/L (137-145)
--- NOTE | 2022-02-19 12:36 | ED.ABDPAIN ---
HPI - Abdominal Pain General Chief Complaint: Abdominal Pain Stated Complaint: abd pain Time Seen by Provider: 02/19/22 12:21 Source: patient Mode of arrival: ambulatory Limitations: no limitations History of Present Illness HPI narrative: Patient 62 years old white female woke up this morning with diffuse swelling and bruises of the right side of the abdomen, patient denies any trauma, fever, chills, nausea, vomiting, diarrhea, constipation. Patient on Lovenox started December 2021 because of left upper extremity deep vein thrombosis. Patient usually inject Lovenox at that area of the abdomen. Related Data Home Medications Medication Instructions Recorded Confirmed celecoxib 200 mg capsule 200 mg PO BID 11/27/21 11/27/21 duloxetine 60 mg capsule,delayed 60 mg PO DAILY 11/27/21 11/27/21 release folic acid 1 mg tablet 1 mg PO DAILY 11/27/21 11/27/21 gabapentin 300 mg capsule 900 mg PO HS 11/27/21 11/27/21 leflunomide 10 mg tablet 10 mg PO DAILY 11/27/21 11/27/21 methotrexate sodium 2.5 mg tablet 12.5 mg PO WEEKLY 11/27/21 11/27/21 tramadol 50 mg tablet 50 mg PO TID 11/27/21 11/27/21 trazodone 50 mg tablet 50 mg PO HS PRN Insomnia 11/27/21 11/27/21 cyanocobalamin (vitamin B-12) ml 02/19/22 1,000 mcg/mL injection solution enoxaparin 150 mg/mL subcutaneous mg 02/19/22 syringe enoxaparin 30 mg/0.3 mL mg subcut 02/19/22 subcutaneous solution Allergies Allergy/AdvReac Type Severity Reaction Status Date / Time No Known Allergies Allergy Verified 02/19/22 10:51 Review of Systems Review of Systems: All systems reviewed & are unremarkable except as noted in HPI and below PMFSH Past Medical History Medical History Acute blood loss anemia Acute LUQ pain Ankylosing spondylitis Diverticular hemorrhage BAMBI (obstructive sleep apnea) Rectal bleeding Surgical History Surgical History History of cholecystectomy History of hernia repair History of Leo-en-Y gastric bypass Family History Family History Father Acute myocardial infarction Mother Hypertension Mother Cerebrovascular accident Social History Social History Smoking packs per day: 0.5 Smoking cigarettes per day: 10.0 Years smoked: 20 Smoking pack-years: 10.00 Smoking status: Former smoker Tobacco type: cigarettes Alcohol intake: never Substance use: never Substance use type: does not use Spiritual care concerns: No Exam Narrative: General appearance: Well-developed, well-nourished Skin: Diffuse bruises, swelling, and tenderness across mid abdomen. Head: Normocephalic, nontraumatic Eyes: Clear conjunctiva ENT: Oropharynx normal, ears normal, nose normal Neck: Supple, nontender Chest and respiratory: Airway patent, no respiratory distress, no accessory muscle use Heart: Regular rate/rhythm Abdomen: Soft, diffuse tenderness and bruises across mid abdomen, no organomegaly, quiet bowel sounds Vascular: Normal peripheral pulses, normal capillary refill. Musculoskeletal: Normal range of motion, nontender back Neurologic: Alert and oriented ?3, GEAR SHAPER SET UP OPERATOR is normal as tested, no gross motor deficit Course Course Emergency Course: At the time of discharge and after taking the IV access out patient started screaming of pain at the hematoma area. IM pain medication was not appropriate at this time especially patient cannot believe, Jansen was given, no improvement, IV access started, Dilaudid 0.5 mg was given with slight improvement but still in pain. P
[2022-02-19] MEDS: SODIUM CHLORIDE 0.9% IV 1,000 ML 999 ML IV CONT (12:47)
[2022-02-19 12:50] LABS: Appearance Urine Clear (Clear); Bilirubin Urine 2+ (Negative); Blood Urine Negative (Negative); Color Urine Yellow (Yellow); Glucose Urine UA Negative (Negative); Ketones Urine Negative (Negative); Leukocyte Esterase Ur Negative LEU/UL (Negative); Nitrate Urine Negative (Negative); Protein Urine 1+ mg/dL (Negative); Specific Grav Ur >= 1.030 (1.001-1.035)
[2022-02-19 12:55] LABS: Hyaline Casts Urine 20-29 /lpf; Mucus Urine Few /lpf; RBC Urine 0-2 /hpf (0-2); Squamous Epithelial Cell Urine Occasional /hpf (Few); WBC Urine 0-3 /hpf
[2022-02-19 12:58] LABS: Add Urine Microscopic? YES
[2022-02-19] MEDS: HYDROcodone/acetaminophen (*CRX) 5-325 MG TABLET 1 TAB PO (14:31)
[2022-02-19] MEDS: ONDANSETRON HCL ODT 4 MG TABLET PO (14:31)
[2022-02-19] MEDS: HYDROmorphone HCL INJ (*CRX) 1 MG/ML SYR 0.5 MG IV PUSH ×2 (15:47→20:02)
--- NOTE | 2022-02-19 18:20 | PM.IMHP ---
H&P: HPI History of Present Illness Date/Time: 02/19/22 18:20 Chief Complaint: Abdominal pain. Narrative: This is a very pleasant 62-year-old female with history of GI bleed, hypertension, sleep apnea, ankylosing spondylitis, and other comorbidities who presented to the emergency department from home for evaluation of abdominal pain. She has been on Lovenox shots twice daily since early December 2021 for a left upper extremity DVT at the site of a PICC line. Several nights ago she noticed discomfort in the right middle abdomen at the site of a Lovenox injection and last night she felt a golf ball size knot in the same region. The area has expanded quite quickly since last night and she reports significant pain throughout the right mid and lower quadrant. CT of the abdomen and pelvis showed a 21.8 x 7.2 x 9.7 cm subcutaneous hematoma at the anterior right lower abdominal pelvic wall with a few small foci of active contrast extravasation. Her vital signs have remained stable though her hemoglobin did drop a bit and she is being admitted overnight for closer observation. At the time my evaluation she is feeling a bit better from compression due to the abdominal binder. She denies lightheadedness, dizziness, chest pain, and shortness of breath. Review of Systems Review of Systems: Twelve systems were reviewed. Last dose of Lovenox was last night. She still has some mild swelling in her left arm but nothing significant. Appetite has been good. No nausea or vomiting. No melena or hematochezia. She has had some sweats. No fever or chills. Except as documented, all other systems were reviewed and are negative. [facility] Past Medical History Medical History (Updated 02/19/22 @ 21:53 by Deanna Rodriges PA-C) Ankylosing spondylitis COVID Diverticular hemorrhage Hypertension (07/2020) Obstructive sleep apnea Polycystic kidney disease Surgical History Surgical History (Updated 02/19/22 @ 21:53 by Deanna Rodriges PA-C) History of bilateral hip replacements (2020) History of cholecystectomy History of hernia repair History of Leo-en-Y gastric bypass (2014) History of tonsillectomy Family History Family History Father Acute myocardial infarction Mother Hypertension Mother Cerebrovascular accident Social History Social History (Updated 02/19/22 @ 21:54 by Deanna Rodriges PA-C) Social History: Surrogate decision maker: Aj Vargas, spouse. Code status: Full code. Smoking packs per day: 0.5 Smoking cigarettes per day: 10.0 Years smoked: 10 Smoking pack-years: 5.00 Smoking status: Former smoker Tobacco type: cigarettes Alcohol intake: never Substance use: never Substance use type: marijuana Additional living arrangements comments: The patient lives with her in [place]. 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 Spiritual care concerns: No Meds Home Medications and Allergies Home Medications Medication Instructions Recorded Confirmed Type celecoxib 200 mg capsule 200 mg PO BID 11/27/21 11/27/21 History duloxetine 60 mg capsule,delayed 60 mg PO DAILY 11/27/21 11/27/21 History release folic acid 1 mg tablet 1 mg PO DAILY 11/27/21 11/27/21 History gabapentin 300 mg capsule 900 mg PO HS 11/27/21 11/27/21 History leflunomide 10 mg tablet 10 mg PO DAILY 11/27/21 11/27/21 History methotrexate sodium 2.5 mg tablet 12.5 mg PO WEEKLY 11/27/21 11/27/21 History tramadol 50 mg tablet 50 mg PO TID 11/27/21 11/27/21 History trazodone 50 mg tablet 50 mg PO HS PRN Insomnia 11/27/21 11/27/21 History cyanocobalamin (vitamin B-12) ml 02/19/22 History 1,000 mcg/mL injection solution enoxaparin 150 mg/mL subcutaneous mg 02/19/22 History syringe enoxaparin 30 mg/0.3 mL mg subcut 02/19/22 History subcutaneous solution Allergies Allergy/AdvReac Type Severity Reaction Status Date / Time No
[2022-02-19] MEDS: SODIUM CHLORIDE 0.9% IV 1,000 ML 125 ML IV CONT (19:08)
--- NOTE | 2022-02-19 19:11 | PC.NURSE ---
This patient, Flory Suggs, was admitted to 3 [facility] Surg Room 319-01. Patient/family oriented to hospital policies and general routines including ID bracelet, bed and alarms, visiting hours, pain management, procedures, bathroom and other care routines, personal items, smoking policy, room service/diet, and visiting hours. Information on how to activate the Rapid Response Team has been discussed. Patient/Family are encouraged to report perceived risks to care and to ask questions if they do not understand what they are told or what they should do. Pt arrived at 1904, report handed off to Ace Garcia.
[2022-02-19 19:15] LABS: Hematocrit 30.1 % (37.0-47.0)
[2022-02-20] VITALS (10 sets, daily range): BP systolic 96–129; BP diastolic 53–72; PULSE 96–108; RESP 16–22; TEMP 36.2–37.7; O2SAT 93–98; BMI 40.2
[2022-02-20] MEDS: HYDROmorphone HCL INJ (*CRX) 1 MG/ML SYR 0.5 MG IV PUSH ×5 (00:04→20:17)
[2022-02-20 00:39] LABS: Hematocrit 26.6 % (37.0-47.0); Hemoglobin 7.8 g/dL (12.0-15.0)
[2022-02-20] MEDS: HYDROcodone/acetaminophen (*CRX) 5-325 MG TABLET 1 TAB PO ×3 (02:32→18:38)
[2022-02-20 06:43] LABS: Basophils Percent Auto 0.7 % (0.2-1.2); Eosinophils Percent Auto 0.5 % (0-4.4); Hematocrit 23.1 % (37.0-47.0); Immature Granulocyte Absolute 0.03 K/mm3 (0.00-0.031); Immature Granulocyte Percent A 0.5 % (0-0.5); Lymphocytes Absolute Auto 1.28 K/mm3 (0.9-3.2); Mean Corpuscular HGB Conc 30.3 g/dl (32-36); Mean Corpuscular Hemoglobin 28.1 pg (26-34); Mean Corpuscular Volume 92.8 fl (80-100); Mean Platelet Volume 10.3 fl (7.4-10.4); Monocytes Absolute Auto 0.6 K/mm3 (0.1-0.6); Neutrophils Absolute Auto 3.8 K/mm3 (1.3-6.7); Neutrophils Percent Auto 65.3 % (45.5-73.1); Nucleated Red Blood Cells Perc 0.3 % (0.0-0.2); Platelet Count Result 232 k/mm3 (150-375); Red Blood Count 2.49 M/mm3 (4.2-5.4); Red Cell Distribution Width 17.4 % (11.5-14.5); White Blood Count 5.8 K/mm3 (4.5-10.0)
[2022-02-20 06:53] LABS: Anion Gap -1 mmol/L (8-16); Blood Urea Nitrogen 24 mg/dL (7-17); Calcium 7.8 mg/dL (8.4-10.2); Carbon Dioxide 27 mmol/L (22-30); Chloride 110 mmol/L (98-107); Estimated CRCL calculation 92 ml/min; Estimated Glomerular Filt Rate > 60; Glucose 108 mg/dL (65-110); Potassium 4.2 mmol/L (3.4-5.0); Sodium 136 mmol/L (137-145)
[2022-02-20 07:44] LABS: INR 1.1; Prothrombin Time 13.8 Seconds (11.1-14.7)
[2022-02-20 07:45] LABS: Partial Thromboplastin Time 30.3 SECONDS (22.3-36.8)
[2022-02-20] MEDS: DULoxetine HCL 60 MG CAPSULE.DR PO (08:37)
[2022-02-20] MEDS: SODIUM CHLORIDE 0.9% IV 250 ML 30 ML IV CONT (09:07)
[2022-02-20 09:15] LABS: Albumin Level 2.5 g/dL (3.5-5.1)
--- NOTE | 2022-02-20 10:39 | PM.CNGS ---
Assessment and Plan Assessment and plan (1) Abdominal wall hematoma: Code(s): S30.1XXA - Contusion of abdominal wall, initial encounter Status: Acute Assessment and Plan: cont to hold anticoagulation, cont serial exams, compression c abd binder, serial H/H, HD stable, may need further imaging if suspicion of active bleed (2) Acute blood loss anemia: Code(s): D62 - Acute posthemorrhagic anemia Status: Acute Assessment and Plan: may need to give some blood, exam and vitals stable (3) Left upper extremity deep vein thrombosis: Code(s): I82.622 - Acute embolism and thrombosis of deep veins of left upper extremity Status: Acute Assessment and Plan: hold anticoagulation History of Present Illness Consult details Consult date: 02/20/22 Reason for consult: other ( abdominal wall hematoma) Requesting physician: Maddy Mccartney PA-C Narrative: The patient is a 62-year-old female present emergency room complete right sided abdominal pain and swelling. The patient reports that she has been giving herself Lovenox shots twice a day since December secondary to left upper extremity DVT. Patient reports she felt a golf ball sized mass in the right mid abdomen on Sunday. The patient reports that the area was bruised and minimally tender. The patient reports she awoke on Sunday and the area was significantly larger and more painful. The patient reports the last time she gave herself Lovenox was Sunday night. Patient denies any previous episodes or history bleeding disorders. Review of Systems Constitutional: Constitutional: Reports no additional constitutional complaints, Denies fatigue, Denies headache(s), Denies lethargy, Denies poor appetite and Denies weakness Eyes: Eyes: Reports no additional eye complaints ENT: Reports system reviewed and no additional complaints, except as documented Cardiovascular: Cardiovascular: Reports no additional cardiovascular complaints Respiratory: Respiratory: Reports no additional respiratory complaints Gastrointestinal: Gastrointestinal: Reports as per HPI and Reports abdominal pain Genitourinary: Genitourinary: Reports no additional female genitourinary complaints Musculoskeletal: Musculoskeletal: Reports as per HPI Integumentary/Breasts: Skin/Breast: Reports as per HPI Neurologic: Reports system reviewed and no additional complaints, except as documented Psychiatric: Psychiatric: Reports no additional psychiatric complaints Endocrine: Endocrine: Reports no additional endocrine complaints Hematologic/Lymphatic: Hematologic/Lymphatic: Reports no additional hematologic/lymphatic complaints Allergic/Immunologic: Allergic/Immunologic: Reports no additional allergic/immunologic complaints [facility] Past Medical History Medical History Ankylosing spondylitis COVID Diverticular hemorrhage Hypertension (07/2020) Obstructive sleep apnea Polycystic kidney disease Surgical History Surgical History History of bilateral hip replacements (2020) History of cholecystectomy History of hernia repair History of Leo-en-Y gastric bypass (2014) History of tonsillectomy Family History Family History Father Acute myocardial infarction Mother Hypertension Mother Cerebrovascular accident Social History Social History Social History: Surrogate decision maker: Aj Vargas, spouse. Code status: Full code. Smoking packs per day: 0.5 Smoking cigarettes per day: 10.0 Years smoked: 10 Smoking pack-years: 5.00 Smoking status: Former smoker Tobacco type: cigarettes Alcohol intake: never Substance use: never Substance use type: marijuana Additional living arrangements comments: The patient lives with her in [facility]
--- NOTE | 2022-02-20 12:01 | PCNSR ---
On 02/20/22, the student, Anjelica Tobias, provided care and completed [facility] documentation on this patient. I have reviewed the student's documentation and agree with the findings.
--- NOTE | 2022-02-20 12:54 | PC.NURSE ---
1 unit infused, H&H recheck at 1430
--- NOTE | 2022-02-20 14:48 | PM.IMPN ---
Progress Note: A&P Assessment and Plan (1) Abdominal wall hematoma: Code(s): S30.1XXA - Contusion of abdominal wall, initial encounter Status: Acute Assessment and Plan: Large abdominal wall hematoma measuring 21.8 x 7.2x9.7 cm. Secondary to Lovenox injections, which are currently being held. Appreciate general surgery consultation. Plan for close monitoring with serial exams and compression with abdominal binder. Supportive care and analgesics as needed. (2) Anticoagulated on heparin: Code(s): Z79.01 - [facility] (current) use of anticoagulants Status: Acute Assessment and Plan: She has been on therapeutic Lovenox since the beginning of December 2021 for left arm DVT. Lovenox was held on admission. Repeat left upper extremity venous doppler shows left cephalic vein thrombosis but fortunately no DVT. Will plan to discontinue Lovenox as she is at high risk of bleeding. (3) Acute blood loss anemia: Code(s): D62 - Acute posthemorrhagic anemia Status: Acute Assessment and Plan: Secondary to large abdominal wall hematoma. Hemoglobin declined to 7.0 today. Proceed with transfusion of 1 unit packed RBC. Recheck H&H 1 hour following transfusion and continue to monitor q6h (4) Left upper extremity deep vein thrombosis: Code(s): I82.622 - Acute embolism and thrombosis of deep veins of left upper extremity Status: Acute Assessment and Plan: Onset December 2021 after PICC line removal. Resolved. Repeat venous Doppler today shows persistent, chronic occlusive thrombosis of the left cephalic vein which was evident on prior doppler from 12/03/21 at this facility with NO evidence of DVT. Will discontinue anticoagulation given resolution of provoked DVT in this patient with high risk for bleeding. (5) Superficial venous thrombosis of arm: Code(s): I82.619 - Acute embolism and thrombosis of superficial veins of unspecified upper extremity Status: Acute Assessment and Plan: See above. Supportive care. Elevate extremity. Warm compresses. (6) Obstructive sleep apnea: Code(s): G47.33 - Obstructive sleep apnea (adult) (pediatric) Status: Acute Assessment and Plan: CPAP will be provided for the patient to use while hospitalized. (7) Ankylosing spondylitis: Code(s): M45.9 - Ankylosing spondylitis of unspecified sites in spine Status: Acute Assessment and Plan: Continue leflunomide and methotrexate. (8) Polycystic kidney disease: Code(s): Q61.3 - Polycystic kidney, unspecified Status: Acute Assessment and Plan: Incidental finding during last hospitalization December 2021. Renal function is appropriate. She will need to follow-up with PCP for monitoring and referral to Nephrology at patient/PCP discretion Subjective Date/time seen: 02/20/22 14:48 Interval history: Date of service: 02/20/2022 Flory Andrade is a 62 year old female with a history of ankylosing spondylitis, BAMBI on CPAP, hypertension, GI bleeding, left upper extremity DVT taking Lovenox injections who is seen in follow up for abdominal wall hematoma. She is doing a bit better today. Her abdominal wall pain is currently 6/10 which she states is much improved from last night, when she rated her pain as 14/10. She believes the hematoma is less protuberant now, but states it is spreading laterally and she is having some pain in the right flank. She believes the abdominal binder is helping. She has difficulty taking breaths due to her pain. She denies nausea or vomiting. Last bowel movement was 2 days ago. Denies chest pain or palpitations. She endorses swelling of her left upper extremity but notes overall improvement over the past 1 month, stating that she is now able to visualize the knuckles on her hand and could not do so before. She does feel a bit weak due to lying in bed. She endorses sweats that is likely due to her
--- NOTE | 2022-02-20 15:14 | PC.NURSE ---
phlebotomy informed of H&H timed draw at 1430
[2022-02-20 15:35] LABS: Hematocrit 24.9 % (37.0-47.0); Hemoglobin 7.5 g/dL (12.0-15.0)
--- NOTE | 2022-02-20 15:59 | PC.NURSE ---
H&H reported the provider Maddy 7.5/24.9nno continue q6h H&H
[2022-02-20] MEDS: LEFLUNOMIDE 10 MG TABLET PO (20:42)
[2022-02-20] MEDS: GABAPENTIN 300 MG CAPSULE 900 MG PO (20:42)
[2022-02-20] MEDS: traZODone HCL 50 MG TABLET PO (20:47)
[2022-02-20 20:51] LABS: Hematocrit 24.5 % (37.0-47.0); Hemoglobin 7.3 g/dL (12.0-15.0)
[2022-02-21] VITALS (9 sets, daily range): BP systolic 103–122; BP diastolic 46–68; PULSE 76–103; RESP 16–20; TEMP 36.5–37.4; O2SAT 90–96
[2022-02-21] MEDS: HYDROcodone/acetaminophen (*CRX) 5-325 MG TABLET 1 TAB PO ×5 (01:28→23:49)
[2022-02-21 02:30] LABS: Hematocrit 22.7 % (37.0-47.0); Mean Corpuscular Hemoglobin 27.6 pg (26-34); Mean Corpuscular Volume 92.3 fl (80-100); Mean Platelet Volume 10.2 fl (7.4-10.4); Platelet Count Result 220 k/mm3 (150-375); Red Blood Count 2.46 M/mm3 (4.2-5.4); Red Cell Distribution Width 18.6 % (11.5-14.5); White Blood Count 8.8 K/mm3 (4.5-10.0)
[2022-02-21 02:34] LABS: Hemoglobin 6.8 g/dL (12.0-15.0)
[2022-02-21 02:43] LABS: Anion Gap -1 mmol/L (8-16); Blood Urea Nitrogen 23 mg/dL (7-17); Calcium 7.8 mg/dL (8.4-10.2); Carbon Dioxide 28 mmol/L (22-30); Chloride 108 mmol/L (98-107); Estimated CRCL calculation 92 ml/min; Estimated Glomerular Filt Rate > 60; Glucose 106 mg/dL (65-110); Potassium 4.3 mmol/L (3.4-5.0); Sodium 135 mmol/L (137-145)
[2022-02-21] MEDS: SODIUM CHLORIDE 0.9% IV 250 ML 10 ML IV CONT (05:14)
[2022-02-21] MEDS: TUBING, BLOOD PLUM PUMP TUBING 1 EACH XX (05:14)
[2022-02-21 08:23] LABS: Hematocrit 25.3 % (37.0-47.0); Hemoglobin 7.9 g/dL (12.0-15.0)
[2022-02-21] MEDS: DULoxetine HCL 60 MG CAPSULE.DR PO (09:13)
--- NOTE | 2022-02-21 14:04 | PM.PNGS ---
Progress Note: A&P Assessment and Plan (1) Abdominal wall hematoma: Code(s): S30.1XXA - Contusion of abdominal wall, initial encounter Status: Acute Assessment and Plan: Continue to hold Lovenox. Hgb dropped slightly to 6.8 early this morning and 1 unit PRBCs was given (total of 2 units) with repeat hgb stable at 7.9. Still hemodynamically stable. Continue to monitor with serial abdominal exams, monitor H/H, and compression with abdominal binder. (2) Acute blood loss anemia: Code(s): D62 - Acute posthemorrhagic anemia Status: Acute Assessment and Plan: Continue to monitor H/H, transfuse as needed (3) Left upper extremity deep vein thrombosis: Code(s): I82.622 - Acute embolism and thrombosis of deep veins of left upper extremity Status: Acute Assessment and Plan: Lovenox on hold. Repeat US shows chronic occlusive thrombosis of left cephalic vein at the elbow, but NO DVT. Hospitalist plans to discontinue therapy completely given resolution of provoked DVT. Additional Plan I have discussed the patient's case and plan of care with Dr. Sky. Subjective Subjective Date/Time Seen: 02/21/22 14:04 Patient reports: feels better, pain is less, flatus, no bowel movement (since sunday) and other (headache) Interval history: Patient seen and examined. She reports having a headache today, but otherwise feeling better. Her pain is being controlled with the Ranger and hasn't required dilaudid since last night. No other complaints at this time. Review of Systems Review of Systems: All systems reviewed & are unremarkable except as noted in HPI and below Exam Const: General: no acute distress and awake Orientation/consciousness: patient oriented x3 GI: Inspection: distended GI Palp: Yes Firmness to palpation present (GI) (in RLQ at the area of the hematoma, same as yesterday) and Yes Tenderness to palpation present (GI) (at the area of the hematoma) Auscultation: Hypoactive bowel sounds present Other: Large subcutaneous hematoma in the right mid to lower abdomen starting around midline with ecchymosis overlying this area, marbleizing machine tender to palpation, does not appear to be enlarging compared to yesterday Neuro: General: moves all extremities and no focal motor deficits Psych: Insight: Good insight present (Psych) Judgement: Good judgement present (Psych) Objective Data Vital Signs Vital Signs: Vital Signs - 24 hr 02/20/22 21:52 02/20/22 20:00 02/21/22 04:47 Temperature 98.5 F 99.3 F Pulse Rate 108 H 76 Respiratory Rate 18 16 Blood Pressure 96/53 L 109/67 Pulse Oximetry 93 94 Oxygen Delivery Room Air 02/21/22 05:03 02/21/22 06:03 02/21/22 07:04 Temperature 99.0 F 97.7 F 98.7 F Pulse Rate 90 94 86 Respiratory Rate 16 16 16 Blood Pressure 105/46 L 112/60 108/68 Pulse Oximetry 94 96 94 Oxygen Delivery 02/21/22 07:28 02/21/22 08:57 02/21/22 09:05 Temperature 97.7 F Pulse Rate 96 Respiratory Rate 16 Blood Pressure 103/50 L Pulse Oximetry 93 95 Oxygen Delivery Room Air Room Air 02/21/22 11:00 Temperature 98.1 F Pulse Rate 103 H Respiratory Rate 20 Blood Pressure 116/56 L Pulse Oximetry 92 Oxygen Delivery Intake/Output Intake/Output: Intake & Output 02/18/22 02/19/22 02/20/22 02/21/22 23:59 23:59 23:59 23:59 Intake Total 1100 2840 990 Output Total 800 Balance 1100 2040 990 Meds/Results Medications: Active Medications Generic Name Dose Route Start Last Admin Trade Name Freq PRN Reason Stop Dose Admin Acetaminophen 650 mg 02/19/22 22:01 Acetaminophen 325 Mg Tablet PO Q6H PRN Mild Pain (1-3) or Fever Hydrocodone Bitart/Acetaminophen 1 tab 02/19/22 22:01 02/21/22 12:45 Hydrocodone/Acetaminophen (*Crx) 5-325 Mg Tablet PO 1 tab Q6H PRN Administration Pain Rated 4-6 Duloxetine HCl 60 mg 02/20/22 09:00 02/21/22 09:13 Duloxetine Hcl 60 Mg Capsule.Dr PO 60 mg DAILY SC
--- NOTE | 2022-02-21 14:36 | PM.IMPN ---
Progress Note: A&P Assessment and Plan (1) Abdominal wall hematoma: Code(s): S30.1XXA - Contusion of abdominal wall, initial encounter Status: Acute Assessment and Plan: Large abdominal wall hematoma measuring 21.8 x 7.2x9.7 cm. Secondary to Lovenox injections, which have been discontinued. Appreciate general surgery consultation. Continue with serial exams and compression with abdominal binder. Supportive care and analgesics as needed. (2) Anticoagulated on heparin: Code(s): Z79.01 - [facility] (current) use of anticoagulants Status: Acute Assessment and Plan: She has been on therapeutic Lovenox since the beginning of December 2021 for left arm DVT. Lovenox was held on admission. Repeat left upper extremity venous doppler shows left cephalic vein thrombosis but fortunately no DVT. Lovenox has now been discontinued. (3) Acute blood loss anemia: Code(s): D62 - Acute posthemorrhagic anemia Status: Acute Assessment and Plan: Secondary to large abdominal wall hematoma. Hemoglobin declined to 6.8 this morning. She has received a total of 2 units packed RBCs. Continue to monitor hemoglobin hematocrit [id number] and transfuse as needed to maintain stable hemoglobin (4) Left upper extremity deep vein thrombosis: Code(s): I82.622 - Acute embolism and thrombosis of deep veins of left upper extremity Status: Resolved Assessment and Plan: Resolved. Onset December 2021 after PICC line removal. Repeat venous Doppler 02/20 shows persistent, chronic occlusive thrombosis of the left cephalic vein which was evident on prior doppler from 12/03/21 at this facility with NO evidence of deep vein thrombosis. Anticoagulation discontinued given resolution of provoked DVT in this patient with high risk for bleeding. (5) Superficial venous thrombosis of arm: Code(s): I82.619 - Acute embolism and thrombosis of superficial veins of unspecified upper extremity Status: Acute Assessment and Plan: See above. Supportive care. Elevate extremity. Warm compresses. (6) Obstructive sleep apnea: Code(s): G47.33 - Obstructive sleep apnea (adult) (pediatric) Status: Acute Assessment and Plan: Continue CPAP (7) Ankylosing spondylitis: Code(s): M45.9 - Ankylosing spondylitis of unspecified sites in spine Status: Acute Assessment and Plan: No acute issues at this time. Continue leflunomide and methotrexate. (8) Polycystic kidney disease: Code(s): Q61.3 - Polycystic kidney, unspecified Status: Acute Assessment and Plan: Incidental finding during last hospitalization December 2021. Renal function is appropriate. She will need to follow-up with PCP for monitoring and referral to Nephrology at patient/PCP discretion Subjective Date/time seen: 02/21/22 14:36 Interval history: Date of service: 02/21/2022 Flory Andrade is a 62 year old female with a history of ankylosing spondylitis, BAMBI on CPAP, hypertension, GI bleeding, left upper extremity DVT taking Lovenox injections who is seen in follow up for abdominal wall hematoma. She is still having pretty significant abdominal pain today. This morning her pain was up to 9/10 and currently she rates at a 7.5/10. Pain is exacerbated by movement. This morning her throat was irritated and she had a coughing spell which caused her very severe pain. She is short of breath with movements due to the pain in her abdomen. She denies nausea or vomiting. Last bowel movement was 3 days ago. She is tolerating her diet. Denies fever, chills, sweats. Denies chest pain or palpitations. Feels that the swelling in her left arm is overall improved. Review of Systems Review of Systems: All systems reviewed & are unremarkable except as noted in HPI and below Exam Narrative: General: Obese, well-appearing 62-year-old female, sitting up in bed, comfortable,
--- NOTE | 2022-02-21 15:53 | PM.PNGS ---
Progress Note: A&P Assessment and Plan (1) Abdominal wall hematoma: Code(s): S30.1XXA - Contusion of abdominal wall, initial encounter Status: Acute Assessment and Plan: cont to hold anticoagulation, given a total of 2 u PRBCs so far and H/H appears to be stable, HD stable Subjective Subjective Date/Time Seen: 02/21/22 15:53 feels better, pain much improved Review of Systems Review of Systems: All systems reviewed & are unremarkable except as noted in HPI and below Exam Const: General: cooperative, comfortable and no acute distress Resp: Auscultation: clear to auscultation bilaterally Cardio: Rate: regular rate Rhythm: regular rhythm GI: Other: soft, sl dist, mild TTP R mid abdomen, hematoma softer and unchanged in size Objective Data Vital Signs Vital Signs: Vital Signs - 24 hr 02/20/22 21:52 02/20/22 20:00 02/21/22 04:47 Temperature 36.9 C 37.4 C Pulse Rate 108 H 76 Respiratory Rate 18 16 Blood Pressure 96/53 L 109/67 Pulse Oximetry 93 94 Oxygen Delivery Room Air 02/21/22 05:03 02/21/22 06:03 02/21/22 07:04 Temperature 37.2 C 36.5 C 37.1 C Pulse Rate 90 94 86 Respiratory Rate 16 16 16 Blood Pressure 105/46 L 112/60 108/68 Pulse Oximetry 94 96 94 Oxygen Delivery 02/21/22 07:28 02/21/22 08:57 02/21/22 09:05 Temperature 36.5 C Pulse Rate 96 Respiratory Rate 16 Blood Pressure 103/50 L Pulse Oximetry 93 95 Oxygen Delivery Room Air Room Air 02/21/22 11:00 Temperature 36.7 C Pulse Rate 103 H Respiratory Rate 20 Blood Pressure 116/56 L Pulse Oximetry 92 Oxygen Delivery Intake/Output Intake/Output: Intake & Output 02/18/22 02/19/22 02/20/22 02/21/22 23:59 23:59 23:59 23:59 Intake Total 1100 2840 990 Output Total 800 Balance 1100 2040 990 Meds/Results Medications: Active Medications Generic Name Dose Route Start Last Admin Trade Name Freq PRN Reason Stop Dose Admin Acetaminophen 650 mg 02/19/22 22:01 Acetaminophen 325 Mg Tablet PO Q6H PRN Mild Pain (1-3) or Fever Hydrocodone Bitart/Acetaminophen 1 tab 02/19/22 22:01 02/21/22 12:45 Hydrocodone/Acetaminophen (*Crx) 5-325 Mg Tablet PO 1 tab Q6H PRN Administration Pain Rated 4-6 Bisacodyl 10 mg 02/21/22 14:05 Bisacodyl 10 Mg Suppository RECTAL QAM PRN Constipation Docusate Sodium 100 mg 02/21/22 21:00 Docusate Sodium 100 Mg Capsule PO Q12HR OCTAVIA Duloxetine HCl 60 mg 02/20/22 09:00 02/21/22 09:13 Duloxetine Hcl 60 Mg Capsule.Dr PO 60 mg DAILY OCTAVIA Administration Gabapentin 900 mg 02/20/22 21:00 02/20/22 20:42 Gabapentin 300 Mg Capsule PO 900 mg HS OCTAVIA Administration Hydromorphone HCl 0.5 mg 02/19/22 17:21 02/20/22 20:17 Hydromorphone Hcl Inj (*Crx) 1 Mg/Ml Syr IV PUSH 0.5 mg Q4H PRN Administration Pain Rated 7-10 Leflunomide 10 mg 02/20/22 21:00 02/20/22 20:42 Leflunomide 10 Mg Tablet PO 10 mg HS OCTAVIA Administration Ondansetron HCl 4 mg 02/19/22 17:21 Ondansetron Inj 4 Mg/2 Ml Vial IV PUSH Q4H PRN Nausea Polyethylene Glycol 17 gm 02/22/22 09:00 Polyethylene Glycol 3350 17 Gm Powd.Pack PO QAM OCTAVIA Trazodone HCl 50 mg 02/20/22 00:22 02/20/22 20:47 Trazodone Hcl 50 Mg Tablet PO 50 mg HS PRN Administration Insomnia Radiology Results: ITS Impressions Abdomen/Pelvis CT 02/19/22 13:21 IMPRESSION: 1. Layering hematocrit levels within a 21.8 x 7.2 x 9.7 cm subcutaneous hematoma at the anterior right lower abdominal/pelvic wall with a few small foci of active contrast extravasation. 2. Polycystic kidney disease. Venous Doppler Study 02/20/22 09:18 IMPRESSION: 1. 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 Labs Labs: Laboratory Results - last 24 hr 02/20/22 02/20/22 02/20/22 00:00 15:00 20:35 WBC RBC Hgb 7.5 L 7.3 L Hct 24.9 L 24.
[2022-02-21 16:13] LABS: Hematocrit 24.6 % (37.0-47.0); Hemoglobin 7.7 g/dL (12.0-15.0)
[2022-02-21] MEDS: PANTOPRAZOLE 40 MG TABLET PO (18:41)
[2022-02-21] MEDS: traZODone HCL 50 MG TABLET PO (20:12)
[2022-02-21] MEDS: DOCUSATE SODIUM 100 MG CAPSULE PO (20:12)
[2022-02-21] MEDS: GABAPENTIN 300 MG CAPSULE 900 MG PO (20:12)
[2022-02-21] MEDS: LEFLUNOMIDE 10 MG TABLET PO (20:12)
[2022-02-21 21:59] LABS: Hemoglobin 7.2 g/dL (12.0-15.0)
[2022-02-22] VITALS: PULSE 94; O2SAT 93
[2022-02-22] MEDS: HYDROcodone/acetaminophen (*CRX) 5-325 MG TABLET 1 TAB PO ×4 (05:18→21:50)
[2022-02-22 05:55] VITALS: BP 103/69; PULSE 91; RESP 18; TEMP 36.2; O2SAT 98
[2022-02-22 06:14] LABS: Hematocrit 22.7 % (37.0-47.0); Hemoglobin 7.1 g/dL (12.0-15.0); Mean Corpuscular HGB Conc 31.3 g/dl (32-36); Mean Corpuscular Hemoglobin 28.6 pg (26-34); Mean Corpuscular Volume 91.5 fl (80-100); Mean Platelet Volume 10.5 fl (7.4-10.4); Platelet Count Result 224 k/mm3 (150-375); Red Blood Count 2.48 M/mm3 (4.2-5.4); Red Cell Distribution Width 17.4 % (11.5-14.5); White Blood Count 7.2 K/mm3 (4.5-10.0)
[2022-02-22 06:22] LABS: Anion Gap -1 mmol/L (8-16); Blood Urea Nitrogen 19 mg/dL (7-17); Carbon Dioxide 31 mmol/L (22-30); Chloride 107 mmol/L (98-107); Estimated CRCL calculation 92 ml/min; Estimated Glomerular Filt Rate > 60; Glucose 97 mg/dL (65-110); Sodium 137 mmol/L (137-145)
[2022-02-22] MEDS: DOCUSATE SODIUM 100 MG CAPSULE PO ×2 (08:34→20:46)
[2022-02-22] MEDS: polyethylene glycoL 3350 17 GM POWD.PACK PO (08:34)
[2022-02-22] MEDS: DULoxetine HCL 60 MG CAPSULE.DR PO (08:34)
[2022-02-22] MEDS: FOLIC ACID 1 MG TABLET PO (08:34)
[2022-02-22 12:23] LABS: Hematocrit 23.8 % (37.0-47.0); Hemoglobin 7.2 g/dL (12.0-15.0)
[2022-02-22 14:00] VITALS: BP 102/48; PULSE 98; RESP 16; TEMP 36.7; O2SAT 89
[2022-02-22 14:05] VITALS: PULSE 87; O2SAT 94
--- NOTE | 2022-02-22 14:59 | PM.IMPN ---
Progress Note: A&P Assessment and Plan (1) Abdominal wall hematoma: Code(s): S30.1XXA - Contusion of abdominal wall, initial encounter Status: Acute Assessment and Plan: Large abdominal wall hematoma measuring 21.8 x 7.2x9.7 cm. Secondary to Lovenox injections, which have been discontinued. Appreciate general surgery consultation. Continue with serial exams and compression with abdominal binder. Supportive care and analgesics as needed. 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 Lovenox was held on admission. Repeat left upper extremity venous doppler shows left cephalic vein thrombosis but fortunately no DVT. Lovenox has now been discontinued. (3) Acute blood loss anemia: Code(s): D62 - Acute posthemorrhagic anemia Status: Acute Assessment and Plan: Secondary to large abdominal wall hematoma. Hemoglobin declined to 6.8 yesterday morning. She has received a total of 2 units packed RBCs. Continue to monitor hemoglobin hematocrit [id number] and transfuse as needed to maintain stable hemoglobin. (4) Left upper extremity deep vein thrombosis: Code(s): I82.622 - Acute embolism and thrombosis of deep veins of left upper extremity Status: Resolved Assessment and Plan: Resolved. Onset December 2021 after PICC line removal. Repeat venous Doppler 02/20 shows persistent, chronic occlusive thrombosis of the left cephalic vein which was evident on prior doppler from 12/03/21 at this facility with NO evidence of deep vein thrombosis. Anticoagulation discontinued given resolution of provoked DVT in this patient with high risk for bleeding. (5) Superficial venous thrombosis of arm: Code(s): I82.619 - Acute embolism and thrombosis of superficial veins of unspecified upper extremity Status: Acute Assessment and Plan: See above. Supportive care. Elevate extremity. Warm compresses. (6) Obstructive sleep apnea: Code(s): G47.33 - Obstructive sleep apnea (adult) (pediatric) Status: Acute Assessment and Plan: Continue CPAP (7) Ankylosing spondylitis: Code(s): M45.9 - Ankylosing spondylitis of unspecified sites in spine Status: Acute Assessment and Plan: No acute issues at this time. Continue leflunomide and methotrexate. (8) Polycystic kidney disease: Code(s): Q61.3 - Polycystic kidney, unspecified Status: Acute Assessment and Plan: Incidental finding during last hospitalization December 2021. Renal function is appropriate. She will need to follow-up with PCP for monitoring and referral to Nephrology at patient/PCP discretion Subjective Date/time seen: 02/22/22 14:59 Interval history: Date of service: 02/21/2022 Flory Andrade is a 62 year old female with a history of ankylosing spondylitis, BAMBI on CPAP, hypertension, GI bleeding, left upper extremity DVT taking Lovenox injections who is seen in follow up for abdominal wall hematoma. Pt is improving slowly. Still having some pain but the medication is now helping more. No cp/sob. No N/V. Review of Systems Review of Systems: All systems reviewed & are unremarkable except as noted in HPI and below Exam Narrative: General: Obese, well-appearing 62-year-old female, sitting up in bed, comfortable, NARD Neuro: awake, alert and oriented x4, speech clear, no focal neuro deficits noted HEENMT: normocephalic, atraumatic, EOMI, sclerae anicteric Respiratory: clear to auscultation bilaterally, nonlabored breathing Cardio: regular rate, regular rhythm with S1-S2 Abdomen: wearing abdominal binder, abdomen is protuberant, soft, diffusely tender to palpation with diffuse ecchymoses spreading to bilateral flanks, abdominal wall hematoma is palpable in
--- NOTE | 2022-02-22 16:37 | PM.PNGS ---
Progress Note: A&P Assessment and Plan (1) Abdominal wall hematoma: Code(s): S30.1XXA - Contusion of abdominal wall, initial encounter Status: Acute Assessment and Plan: hematoma improving. Much less painful and size seems to be smaller per patient report. No evidence of skin breakdown. Very unlikely to require any surgical treatment. Would increase activity. (2) Acute blood loss anemia: Code(s): D62 - Acute posthemorrhagic anemia Status: Acute Assessment and Plan: Improved H&H after transfusion. Hemoglobin has been stable so we will discontinue q.6 our H&H is and just get them each morning. (3) Left upper extremity deep vein thrombosis: Code(s): I82.622 - Acute embolism and thrombosis of deep veins of left upper extremity Status: Resolved Assessment and Plan: Resolved by ultrasound imaging. Agree with discontinuing anticoagulation. Subjective Subjective Date/Time Seen: 02/22/22 16:37 Patient reports: feels better, pain is less ( Minimal discomfort. Binder helps.) and other ( hematoma has decreased in size.) Review of Systems Review of Systems: All systems reviewed & are unremarkable except as noted in HPI and below ( HPI and those items noted below) Constitutional: Constitutional: Denies body ache(s), Denies chills and Denies fever(s) Cardiovascular: Cardiovascular: Denies chest pain, Denies diaphoresis, Denies dyspnea and Denies paroxysmal nocturnal dyspnea Respiratory: Respiratory: Denies chest congestion, Denies cough and Denies dyspnea Gastrointestinal: Gastrointestinal: Reports as per HPI and Reports abdominal pain ( improved) Integumentary/Breasts: Skin/Breast: Denies lesions and Denies rash Exam Const: General: cooperative, comfortable and no acute distress Nutritional Appearance: obese Orientation/consciousness: patient oriented x3 GI: Inspection: abdominal wall ecchymosis ( hematoma right abdomen with ecchymoses in a band across both sides), non-distended, obesity and other ( no suggestion of skin breakdown at all) GI Palp: Yes Soft to palpation and Yes Tenderness to palpation present (GI) ( minimal tenderness) Objective Data Vital Signs Vital Signs: Vital Signs - 24 hr 02/21/22 22:00 02/22/22 00:00 02/22/22 05:55 Temperature 36.7 C 36.2 C L Pulse Rate 102 H 94 91 Respiratory Rate 18 18 Blood Pressure 122/63 103/69 Pulse Oximetry 90 93 98 Oxygen Delivery 02/22/22 08:35 02/22/22 14:00 02/22/22 14:05 Temperature 36.7 C Pulse Rate 98 87 Respiratory Rate 16 Blood Pressure 102/48 L Pulse Oximetry 89 L 94 Oxygen Delivery Room Air 02/22/22 14:05 Temperature Pulse Rate Respiratory Rate Blood Pressure Pulse Oximetry 94 Oxygen Delivery Room Air Intake/Output Intake/Output: Intake & Output 02/19/22 02/20/22 02/21/22 02/22/22 23:59 23:59 23:59 23:59 Intake Total 1100 2840 1780 740 Output Total 800 Balance 1100 2040 1780 740 Meds/Results Medications: Active Medications Generic Name Dose Route Start Last Admin Trade Name Freq PRN Reason Stop Dose Admin Acetaminophen 650 mg 02/19/22 22:01 Acetaminophen 325 Mg Tablet PO Q6H PRN Mild Pain (1-3) or Fever Hydrocodone Bitart/Acetaminophen 1 tab 02/22/22 16:20 Hydrocodone/Acetaminophen (*Crx) 5-325 Mg Tablet PO Q4H PRN Pain Rated 4-6 Bisacodyl 10 mg 02/21/22 14:05 Bisacodyl 10 Mg Suppository RECTAL QAM PRN Constipation Calcium Carbonate 200 mg 02/21/22 18:10 Calcium Carbonate (Tums) 500 Mg (200 Mg Elemental) PO Q6H PRN Indigestion Docusate Sodium 100 mg 02/21/22 21:00 02/22/22 08:34 Docusate Sodium 100 Mg Capsule PO 100 mg Q12HR OCTAVIA Administration Duloxetine HCl 60 mg 02/20/22 09:00 02/22/22 08:34 Duloxetine Hcl 60 Mg Capsule.Dr PO 60 mg DAILY OCTAVIA Administration Folic Acid 1 mg 02/22/22 09:00 02/22/22 08:34 Folic Acid 1 Mg Tablet PO 1
[2022-02-22] MEDS: LEFLUNOMIDE 10 MG TABLET PO (20:46)
[2022-02-22] MEDS: GABAPENTIN 300 MG CAPSULE 900 MG PO (20:46)
[2022-02-22] MEDS: traZODone HCL 50 MG TABLET PO (20:46)
[2022-02-22 21:30] VITALS: PULSE 94; O2SAT 93
[2022-02-22 22:00] VITALS: BP 116/59; PULSE 99; RESP 20; TEMP 37.2; O2SAT 93
[2022-02-23 00:27] VITALS: O2SAT 94
[2022-02-23 06:00] VITALS: BP 108/53; PULSE 95; RESP 12; TEMP 36.3; O2SAT 94
[2022-02-23 06:48] LABS: Basophils Percent Auto 0.8 % (0.2-1.2); Eosinophils Absolute Auto 0.2 K/mm3 (0-0.3); Eosinophils Percent Auto 3.2 % (0-4.4); Hematocrit 22.8 % (37.0-47.0); Immature Granulocyte Absolute 0.04 K/mm3 (0.00-0.031); Immature Granulocyte Percent A 0.8 % (0-0.5); Lymphocytes Absolute Auto 0.82 K/mm3 (0.9-3.2); Lymphocytes Percent Auto 16.2 % (18.3-44.2); Mean Corpuscular HGB Conc 30.7 g/dl (32-36); Mean Corpuscular Hemoglobin 28.9 pg (26-34); Mean Corpuscular Volume 94.2 fl (80-100); Mean Platelet Volume 9.9 fl (7.4-10.4); Monocytes Absolute Auto 0.8 K/mm3 (0.1-0.6); Monocytes Percent Auto 15.4 % (2.6-8.5); Neutrophils Absolute Auto 3.2 K/mm3 (1.3-6.7); Neutrophils Percent Auto 63.6 % (45.5-73.1); Nucleated Red Blood Cells Perc 0.6 % (0.0-0.2); Platelet Count Result 250 k/mm3 (150-375); Red Blood Count 2.42 M/mm3 (4.2-5.4); White Blood Count 5.1 K/mm3 (4.5-10.0)
[2022-02-23 07:01] LABS: Anion Gap -1 mmol/L (8-16); Blood Urea Nitrogen 17 mg/dL (7-17); Calcium 7.8 mg/dL (8.4-10.2); Carbon Dioxide 30 mmol/L (22-30); Chloride 104 mmol/L (98-107); Estimated CRCL calculation 82 ml/min; Estimated Glomerular Filt Rate > 60; Glucose 92 mg/dL (65-110); Sodium 133 mmol/L (137-145)
[2022-02-23] MEDS: DOCUSATE SODIUM 100 MG CAPSULE PO (08:48)
[2022-02-23] MEDS: FOLIC ACID 1 MG TABLET PO (08:48)
[2022-02-23] MEDS: HYDROcodone/acetaminophen (*CRX) 5-325 MG TABLET 1 TAB PO (08:48)
[2022-02-23] MEDS: polyethylene glycoL 3350 17 GM POWD.PACK PO (08:48)
[2022-02-23] MEDS: DULoxetine HCL 60 MG CAPSULE.DR PO (08:48)
--- NOTE | 2022-02-23 10:07 | PM.PNGS ---
Progress Note: A&P Assessment and Plan (1) Abdominal wall hematoma: Code(s): S30.1XXA - Contusion of abdominal wall, initial encounter Status: Acute Assessment and Plan: stable, exam benign, H/H stable, no acute surgical issues, will s/o, call c ?s, issues Subjective Subjective Date/Time Seen: 02/23/22 10:07 feels good, little to no pain at this point Review of Systems Review of Systems: All systems reviewed & are unremarkable except as noted in HPI and below Exam Const: General: cooperative, comfortable and no acute distress Resp: Auscultation: clear to auscultation bilaterally Cardio: Rate: regular rate Rhythm: regular rhythm GI: Inspection: normal to inspection and non-distended GI Palp: No abdominal tenderness and Yes Soft to palpation Other: hematoma soft c moderate bruising, no s/s expansion Objective Data Vital Signs Vital Signs: Vital Signs - 24 hr 02/22/22 14:00 02/22/22 14:05 02/22/22 14:05 Temperature 36.7 C Pulse Rate 98 87 Respiratory Rate 16 Blood Pressure 102/48 L Pulse Oximetry 89 L 94 94 Oxygen Delivery Room Air 02/22/22 20:00 02/22/22 22:00 02/22/22 21:30 Temperature 37.2 C Pulse Rate 99 94 Respiratory Rate 20 Blood Pressure 116/59 L Pulse Oximetry 93 93 Oxygen Delivery Room Air 02/23/22 00:27 02/23/22 06:00 Temperature 36.3 C L Pulse Rate 95 Respiratory Rate 12 Blood Pressure 108/53 L Pulse Oximetry 94 94 Oxygen Delivery Room Air Intake/Output Intake/Output: Intake & Output 02/20/22 02/21/22 02/22/22 02/23/22 23:59 23:59 23:59 23:59 Intake Total 2840 1780 1720 620 Output Total 800 300 Balance 2040 1780 1720 320 Meds/Results Medications: Active Medications Generic Name Dose Route Start Last Admin Trade Name Freq PRN Reason Stop Dose Admin Acetaminophen 650 mg 02/19/22 22:01 Acetaminophen 325 Mg Tablet PO Q6H PRN Mild Pain (1-3) or Fever Hydrocodone Bitart/Acetaminophen 1 tab 02/22/22 16:20 02/23/22 08:48 Hydrocodone/Acetaminophen (*Crx) 5-325 Mg Tablet PO 1 tab Q4H PRN Administration Pain Rated 4-6 Bisacodyl 10 mg 02/21/22 14:05 Bisacodyl 10 Mg Suppository RECTAL QAM PRN Constipation Calcium Carbonate 200 mg 02/21/22 18:10 Calcium Carbonate (Tums) 500 Mg (200 Mg Elemental) PO Q6H PRN Indigestion Docusate Sodium 100 mg 02/21/22 21:00 02/23/22 08:48 Docusate Sodium 100 Mg Capsule PO 100 mg Q12HR OCATVIA Administration Duloxetine HCl 60 mg 02/20/22 09:00 02/23/22 08:48 Duloxetine Hcl 60 Mg Capsule.Dr PO 60 mg DAILY OCTAVIA Administration Folic Acid 1 mg 02/22/22 09:00 02/23/22 08:48 Folic Acid 1 Mg Tablet PO 1 mg DAILY COTAVIA Administration Gabapentin 900 mg 02/20/22 21:00 02/22/22 20:46 Gabapentin 300 Mg Capsule PO 900 mg HS OCTAVIA Administration Leflunomide 10 mg 02/20/22 21:00 02/22/22 20:46 Leflunomide 10 Mg Tablet PO 10 mg HS OCTAVIA Administration Ondansetron HCl 4 mg 02/19/22 17:21 Ondansetron Inj 4 Mg/2 Ml Vial IV PUSH Q4H PRN Nausea Polyethylene Glycol 17 gm 02/22/22 09:00 02/23/22 08:48 Polyethylene Glycol 3350 17 Gm Powd.Pack PO 17 gm QAM OCTAVIA Administration Trazodone HCl 50 mg 02/20/22 00:22 02/22/22 20:46 Trazodone Hcl 50 Mg Tablet PO 50 mg HS PRN Administration Insomnia Radiology Results: ITS Impressions Abdomen/Pelvis CT 02/19/22 13:21 IMPRESSION: 1. Layering hematocrit levels within a 21.8 x 7.2 x 9.7 cm subcutaneous hematoma at the anterior right lower abdominal/pelvic wall with a few small foci of active contrast extravasation. 2. Polycystic kidney disease. Venous Doppler Study 02/20/22 09:18 IMPRESSION: 1. 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 Labs Labs: Laboratory Results - last 24 hr 02/22/22 02/23/22 02/23/22 12:09 06:29 06:29 WBC 5.1
[2022-02-23 14:00] VITALS: BP 113/48; PULSE 89; RESP 20; TEMP 36.3; O2SAT 95
--- NOTE | 2022-02-23 15:17 | PM.DS ---
DS: Admitting Diagnosis Discharge Date 02/23/22 Admitting Diagnosis abdominal hematoma DS: Discharge Diagnosis Discharge Diagnosis (1) Abdominal wall hematoma: Code(s): S30.1XXA - Contusion of abdominal wall, initial encounter Status: Acute Assessment and Plan: Large abdominal wall hematoma measuring 21.8 x 7.2x9.7 cm. Secondary to Lovenox injections, which have been discontinued. Appreciate general surgery consultation. Continue with serial exams and compression with abdominal binder. Supportive care and analgesics as needed. Significantly improved. H/H has stabilized. Stable for dc per surgery. Will have her continue w/ abdominal binder. Repeat H/H on Sunday. Follow up with her pcp next week. All questions concerns addressed. Return precautions provided. (2) Anticoagulated on heparin: Code(s): Z79.01 - [facility] (current) use of anticoagulants Status: Acute Assessment and Plan: She has been on therapeutic Lovenox since the beginning of December 2021 for left arm DVT. Lovenox was held on admission. Repeat left upper extremity venous doppler shows left cephalic vein thrombosis but fortunately no DVT. Lovenox has now been discontinued. (3) Acute blood loss anemia: Code(s): D62 - Acute posthemorrhagic anemia Status: Acute Assessment and Plan: Secondary to large abdominal wall hematoma. Hemoglobin declined to 6.8 02/22/22. She has received a total of 2 units packed RBCs. She has remained stable right around 7.0/7.1. 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 (4) Left upper extremity deep vein thrombosis: Code(s): I82.622 - Acute embolism and thrombosis of deep veins of left upper extremity Status: Resolved Assessment and Plan: Resolved. Onset December 2021 after PICC line removal. Repeat venous Doppler 02/20 shows persistent, chronic occlusive thrombosis of the left cephalic vein which was evident on prior doppler from 12/03/21 at this facility with NO evidence of deep vein thrombosis. Anticoagulation discontinued given resolution of provoked DVT in this patient with high risk for bleeding. (5) Superficial venous thrombosis of arm: Code(s): I82.619 - Acute embolism and thrombosis of superficial veins of unspecified upper extremity Status: Acute Assessment and Plan: See above. Supportive care. Elevate extremity. Warm compresses. (6) Obstructive sleep apnea: Code(s): G47.33 - Obstructive sleep apnea (adult) (pediatric) Status: Acute Assessment and Plan: Continued CPAP (7) Ankylosing spondylitis: Code(s): M45.9 - Ankylosing spondylitis of unspecified sites in spine Status: Acute Assessment and Plan: No acute issues at this time. Continued leflunomide and methotrexate. (8) Polycystic kidney disease: Code(s): Q61.3 - Polycystic kidney, unspecified Status: Acute Assessment and Plan: Incidental finding during last hospitalization December 2021. Renal function is appropriate. She will need to follow-up with PCP for monitoring and referral to Nephrology at patient/PCP discretion DS: Summary Hospital Course Reason for hospitalization: Flory Andrade is a 62 year old female with a history of ankylosing spondylitis, BAMBI on CPAP, hypertension, GI bleeding, left upper extremity DVT taking Lovenox injections who is seen in follow up for abdominal wall hematoma.? Please see HPI for further details. Hospital Course: Please see above for details of hospital course. Status at Discharge Cognitive/behavioral status at discharge: stable Functional status at discharge: independent ambulation Time Spent with Patient Time attestation: Total time spent providing and/or coordinating discharge services: 35 Time spent: Greater than 30 minutes Exam Narrative: General: Obese, well-appearing 62-year-old female,
== END 2022-02-23 16:32 | disposition home or self-care (01) | DRG 556 ==
LOC: ANHED 14:07 → ANH3MEDSUR 18:19
PROVIDERS: Emergency Medicine; Physician Assistant; Admitting Provider Chiropractor; Emergency Provider Emergency Medicine; PCP Internal Medicine; Visit Provider Physician Assistant
DX: M79.81 Nontraumatic hematoma of soft tissue (principal); D62 Acute posthemorrhagic anemia; I82.712 Chronic embolism and thrombosis of superficial veins of left upper extremity; T45.515A Adverse effect of anticoagulants, initial encounter; Z79.01 Long term (current) use of anticoagulants; E28.2 Polycystic ovarian syndrome; I10 Essential (primary) hypertension; G47.33 Obstructive sleep apnea (adult) (pediatric); M45.9 Ankylosing spondylitis of unspecified sites in spine; Z87.891 Personal history of nicotine dependence; Z86.16 Personal history of COVID-19; Z96.643 Presence of artificial hip joint, bilateral; Z90.49 Acquired absence of other specified parts of digestive tract; Z98.84 Bariatric surgery status
CPT/HCPCS: 36415; 36430; 74177; 80048; 80053; 81001; 81025; 82040; 83690; 83735; 85014; 85018; 85025; 85027; 85610; 85730; 86850; 86900; 86901; 86920; 93971; 96361; 96365; 96374; 96376; 97161; 97165; 99285; A9270; G0378; J0131; J1170; J7030; J7050; P9016; Q9967